=== PATIENT | female | born 1970 | race Caucasian/White ===

== ENCOUNTER 2016-03-14 08:25 | Emergency (ER) | payer OTHER ==
[~2016-03-14] VITALS: Ht 154.9 cm; Wt 117.5 kg
[~2016-03-14 08:25] MED LIST: ALBUTEROL0.09 MG/A2 INH; AMOXICILLIN500 MG PO; ANAPROX DS550 MG PO; ANTIVERT25 MG PO; ASPI-COR81 M1 PO; ASPIR LOW81 MG PO; ASPIRIN80 MG PO; AUGMENTIN 875875 MG PO; B COMPLEX1 EACH PO; BACTRIM DS 8001 TA1 PO; BYDUREON2 M1 SQ; CARAFATE1 G1 PO; CARAFATE1 GM PO; CELEXA20 MG PO; CEPHALEXIN500 M1 PO; CLARITIN10 MG PO; COLCHICINE0.6 MG PO; COLESTIPOL HYDRO1 GM PO; COMBIVENT1 ARO IH; CYMBALTA60 MG PO; DAYPRO600 M1 PO; DECADRON4 MG PO; DELTASONE2.5 MG PO; DICLOFENAC SOD50 MG PO; DICLOFENAC SOD75 MG PO; DOXYCYCLINE HY100 M3 PO; ELIMITE 5%60 GM PO; FENOFIBRATE145 M1 PO; FERROUS SULFAT324 M1 PO; FERROUS SULFAT325 M1 PO; FISH OIL SUPER1 SGL PO; FISH OIL500 M1 PO; FLEXERIL10 MG PO; FLEXERIL5 MG PO; GABAPENTIN100 M1 PO; GLUCOPHAGE500 MG PO; HYDROCODONE BIT1 T11 PO; IMODIUM2 MG PO; INDOCIN25 MG PO; IRON TABLETS325 MG PO; LANTUS100 U/ML SC; LASIX40 MG PO; LODINE400 MG PO; MACROBID100 M1 PO; MEDROL DOSEPAK4 MG PO; MELATONIN5 M1 SL; MOBIC15 MG PO; MODAFINIL200 M1 PO; NAPROSYN500 MG PO; NEURONTIN300 MG PO; NEXIUM40 MG PO; NORCO 325 MG-51 TAB PO; NORTRIPTYLINE10 MG PO; Orphenadrine C100 MG PO; PEPCID20 MG PO; PREDNICOT20 MG PO; PREDNISONE10 MG PO; PREDNISONE20 MG PO; PREDNISONE50 MG PO; PRILOSEC40 MG PO; PROAIR HFA8.5 GM IH; PROVENTIL0.09 MG/AC IH; Phenergan25 MG PO; REQUIP0.5 MG PO; ROBAXIN750 MG PO; ROBITUSSIN AC 110 ML PO; SAPHRIS10 M1 SL; SAPHRIS5 M1 SL; SUNMARK OMEPRAZ20 M1 PO; SYMBICORT1 AE1 INH; TOPAMAX50 MG PO; TRAD5TAB1 PO; TRAMADOL HCL50 MG PO; TRAZADONE HYDR100 MG PO; TRICOR145 MG PO; TRICOR48 MG PO; TYLENOL W/CODEI1 TA7 PO; ULTRAM50 MG PO; VICODIN 5/500 505 MG PO; VICODIN 500 MG-1 TAB PO; VICODIN ES 7501 TAB PO; VISTARIL25 MG PO; VISTARIL50 MG PO; VITAMIN B121000 MC1 PO; VITAMIN D2400 IU PO; VITAMIN D2400 UNIT PO; VITAMIN E PO; VOLTAREN1% TP; ZITHROMAX Z PA250 MG PO; ZITHROMAX250 MG PO; ZOFRAN ODT4 MG SL; ZOFRAN4 MG PO; ZOLOFT100 MG PO; ZOMIG5 MG PO; ZYRTEC10 M1 PO; Zofran4 MG PO
[2016-03-14 08:33] VITALS: BP 134/80
[2016-03-14] MEDS ORDERED: PREDNISONE10 MG PO (08:34)
[2016-03-14] MEDS ORDERED: DOXYCYCLINE100 M3 PO (08:34)
[2016-03-14 09:14] LABS: BASO % 0.3 % (0.0-1.0); EOS # 0.1 10*3/uL (0.0-0.4); EOS % 0.5 % (1.0-4.0); HEMATOCRIT 41.4 % (37.0-47.0); IG # 0.2 10*3/uL (0.0-0.1); LYMPH # 4.4 10*3/uL (1.3-4.4); LYMPH % 28.9 % (27.0-41.0); MEAN CELL VOLUME 83.5 fl (81.0-99.0); MEAN CORPUSCULAR HGB 26.2 pg (27.0-31.0); MEAN CORPUSCULAR HGB CONC 31.4 g/dl (33.0-37.0); MEAN PLATELET VOLUME 10.5 fl (9.6-12.3); MONO # 0.6 10*3/uL (0.1-1.0); MONO % 4.1 % (3.0-9.0); NEUT # 9.9 10*3/uL (2.3-7.9); NEUT % 64.8 % (47.0-73.0); PLATELET COUNT AUTOMATED 348 10*3/uL (130-400); RED BLOOD COUNT 4.96 10*6/uL (4.10-5.10); RED CELL DISTRI WIDTH 14.2 % (0-14.5); WHITE BLOOD COUNT 15.3 10*3/uL (4.8-10.8)
[2016-03-14 09:29] LABS: ALBUMIN 3.3 gm/dl (3.1-4.5); ALKALINE PHOSPHATASE 104 U/L (45-117); BILIRUBIN, TOTAL 0.3 mg/dl (0.2-1.0); BUN 14 mg/dl (7-24); CARBON DIOXIDE 26 mmol/L (21-32); CHLORIDE 106 mmol/L (98-107); EST GLOM FILT AFRICAN AMERICAN > 60 ml/min; GLUCOSE 137 mg/dL (65-99); SGOT/AST 30 IU/L (3-35); SGPT/ALT 79 U/L (12-78); SODIUM 142 mmol/L (136-145); TOTAL PROTEIN 8.7 gm/dL (6.4-8.2)
[2016-03-14] MEDS ORDERED: KEFLEX500 M1 PO (10:42)
== END 2016-03-14 11:10 | disposition home or self-care (01) ==
LOC: ED 08:25
PROVIDERS: Student in an Organized Health Care Education/Training Program
DX: K11.20 Sialoadenitis, unspecified (principal); R13.10 Dysphagia, unspecified; F32.9 Major depressive disorder, single episode, unspecified; K21.9 Gastro-esophageal reflux disease without esophagitis; E78.5 Hyperlipidemia, unspecified; G43.909 Migraine, unspecified, not intractable, without status migrainosus; E11.40 Type 2 diabetes mellitus with diabetic neuropathy, unspecified; E11.65 Type 2 diabetes mellitus with hyperglycemia; G89.29 Other chronic pain; Z91.041 Radiographic dye allergy status; Z88.1 Allergy status to other antibiotic agents; Z91.040 Latex allergy status; Z88.6 Allergy status to analgesic agent; Z79.899 Other long term (current) drug therapy; Z79.82 Long term (current) use of aspirin; Z79.4 Long term (current) use of insulin

== ENCOUNTER 2016-03-15 16:05 | Inpatient (IN) | payer OTHER ==
[~2016-03-15] VITALS: Ht 154.9 cm; Wt 119.4 kg
[~2016-03-15 16:05] MED LIST changes: +DOXYCYCLINE100 M3 PO; +KEFLEX500 M1 PO
[2016-03-15 16:21] VITALS: BP 129/70
[2016-03-15 16:59] LABS: BASO % 0.3 % (0.0-1.0); EOS # 0.3 10*3/uL (0.0-0.4); EOS % 2.1 % (1.0-4.0); HEMATOCRIT 41.1 % (37.0-47.0); HEMOGLOBIN 13.1 g/dl (12.0-16.0); IG # 0.1 10*3/uL (0.0-0.1); LYMPH # 3.5 10*3/uL (1.3-4.4); LYMPH % 28.5 % (27.0-41.0); MEAN CELL VOLUME 82.7 fl (81.0-99.0); MEAN CORPUSCULAR HGB 26.4 pg (27.0-31.0); MEAN CORPUSCULAR HGB CONC 31.9 g/dl (33.0-37.0); MEAN PLATELET VOLUME 10.2 fl (9.6-12.3); MONO # 0.6 10*3/uL (0.1-1.0); MONO % 4.9 % (3.0-9.0); NEUT # 7.7 10*3/uL (2.3-7.9); NEUT % 63.6 % (47.0-73.0); PLATELET COUNT AUTOMATED 307 10*3/uL (130-400); RED BLOOD COUNT 4.97 10*6/uL (4.10-5.10); RED CELL DISTRI WIDTH 14.3 % (0-14.5); WHITE BLOOD COUNT 12.1 10*3/uL (4.8-10.8)
[2016-03-15 17:15] LABS: ALBUMIN 3.1 gm/dl (3.1-4.5); ALKALINE PHOSPHATASE 107 U/L (45-117); BILIRUBIN, TOTAL 0.4 mg/dl (0.2-1.0); BUN 12 mg/dl (7-24); CARBON DIOXIDE 30 mmol/L (21-32); CHLORIDE 102 mmol/L (98-107); EST GLOM FILT AFRICAN AMERICAN > 60 ml/min; GLUCOSE 102 mg/dL (65-99); POTASSIUM 4.3 mmol/L (3.5-5.1); SGOT/AST 46 IU/L (3-35); SGPT/ALT 79 U/L (12-78); SODIUM 140 mmol/L (136-145)
[2016-03-15 18:45] VITALS: BP 107/66
[2016-03-15 19:12] VITALS: BP 124/47
[2016-03-15 19:45] VITALS: BP 124/47
[2016-03-16] VITALS: BP 98/52
[2016-03-16 04:00] VITALS: BP 94/53
[2016-03-16 07:58] VITALS: BP 109/51
[2016-03-16 08:10] LABS: BASO % 0.3 % (0.0-1.0); EOS # 0.3 10*3/uL (0.0-0.4); EOS % 3.4 % (1.0-4.0); IG # 0.1 10*3/uL (0.0-0.1); LYMPH % 34.6 % (27.0-41.0); MEAN CORPUSCULAR HGB 26.3 pg (27.0-31.0); MEAN CORPUSCULAR HGB CONC 31.7 g/dl (33.0-37.0); MEAN PLATELET VOLUME 10.1 fl (9.6-12.3); MONO # 0.5 10*3/uL (0.1-1.0); MONO % 5.3 % (3.0-9.0); NEUT # 4.9 10*3/uL (2.3-7.9); NEUT % 55.7 % (47.0-73.0); PLATELET COUNT AUTOMATED 250 10*3/uL (130-400); RED BLOOD COUNT 4.18 10*6/uL (4.10-5.10); RED CELL DISTRI WIDTH 14.2 % (0-14.5); WHITE BLOOD COUNT 8.7 10*3/uL (4.8-10.8)
[2016-03-16 08:11] LABS: HEMATOCRIT 34.7 % (37.0-47.0)
[2016-03-16 08:20] LABS: PROTHROMBIN TIME 10.4 SECONDS (9.0-12.4)
[2016-03-16 08:28] LABS: ALBUMIN 2.6 gm/dl (3.1-4.5); ALKALINE PHOSPHATASE 87 U/L (45-117); BILIRUBIN, TOTAL 0.3 mg/dl (0.2-1.0); BUN 10 mg/dl (7-24); CARBON DIOXIDE 26 mmol/L (21-32); CHLORIDE 108 mmol/L (98-107); CHOLESTEROL 156 mg/dL (<200); EST GLOM FILT AFRICAN AMERICAN > 60 ml/min; FREE T4 1.27 ng/dl (0.76-1.46); GLUCOSE 111 mg/dL (65-99); HDL CHOLESTEROL 31 mg/dl (40-60); LDL CHOLESTEROL 89 mg/dL (9-159); MAGNESIUM 2.1 mg/dL (1.5-2.1); POTASSIUM 3.9 mmol/L (3.5-5.1); SGOT/AST 43 IU/L (3-35); SGPT/ALT 64 U/L (12-78); SODIUM 144 mmol/L (136-145); TOTAL PROTEIN 6.6 gm/dL (6.4-8.2); TRIGLYCERIDES 180 mg/dl (<150); VLDL CHOLESTEROL 36 mg/dL (6-40)
[2016-03-16 08:45] LABS: FOLIC ACID 4.7 ng/mL (>5.38)
[2016-03-16 09:18] LABS: HEMOGLOBIN A1c 8.4 % (4.8-5.6)
[2016-03-16 16:00] VITALS: BP 156/67
[2016-03-17] VITALS: BP 114/75
[2016-03-17 08:00] VITALS: BP 130/62
[2016-03-17] MEDS ORDERED: METFORMIN1000 MG PO (10:33)
== END 2016-03-17 11:30 | disposition home or self-care (01) | DRG 871 ==
LOC: ED 16:05 → EDHOLD 17:50 → 5E 18:31
PROVIDERS: Internal Medicine Hospice and Palliative Medicine; Nurse Practitioner Family
DX: A41.9 Sepsis, unspecified organism (principal); E43 Unspecified severe protein-calorie malnutrition; E08.42 Diabetes mellitus due to underlying condition with diabetic polyneuropathy; Z68.42 Body mass index [BMI] 45.0-49.9, adult; K11.20 Sialoadenitis, unspecified; G25.81 Restless legs syndrome; D50.9 Iron deficiency anemia, unspecified; G47.419 Narcolepsy without cataplexy; K21.9 Gastro-esophageal reflux disease without esophagitis; K27.9 Peptic ulcer, site unspecified, unspecified as acute or chronic, without hemorrhage or perforation; F31.9 Bipolar disorder, unspecified; J45.909 Unspecified asthma, uncomplicated; G43.909 Migraine, unspecified, not intractable, without status migrainosus; G44.89 Other headache syndrome; R74.0 Nonspecific elevation of levels of transaminase and lactic acid dehydrogenase [LDH]; G89.4 Chronic pain syndrome; E78.5 Hyperlipidemia, unspecified; G43.919 Migraine, unspecified, intractable, without status migrainosus; Z79.899 Other long term (current) drug therapy; Z79.82 Long term (current) use of aspirin; Z79.4 Long term (current) use of insulin; Z82.3 Family history of stroke; Z83.3 Family history of diabetes mellitus; Z80.9 Family history of malignant neoplasm, unspecified; Z82.49 Family history of ischemic heart disease and other diseases of the circulatory system; Z88.8 Allergy status to other drugs, medicaments and biological substances; Z91.041 Radiographic dye allergy status; Z88.1 Allergy status to other antibiotic agents; Z91.040 Latex allergy status

== ENCOUNTER 2016-05-03 16:10 | Inpatient (IN) | payer OTHER ==
[~2016-05-03] VITALS: Ht 155 cm; Wt 120.0 kg
--- NOTE | ~2016-05-03 | CON ---
[place], [place] REPORT OF CONSULTATION [id number] UN[facility] #: [id number] ROOM: 407 DOCTOR: RAYNA CASTRO MD BIRTHDATE: [birth year] DOS: 05/05/2016 HISTORY OF PRESENT ILLNESS: This is a 45-year-old -[place]une[place] woman with a history of morbid obesity, obstructive sleep apnea and uses BiPAP at night. She also has essential hypertension. She has never had a stroke, but has had diabetes for some time and hyperlipidemia. Father was 55 when she had a heart attack. She has never smoked cigarettes, does not use alcoholic beverages and lives with her . She had a diagnostic heart cath done about 15 years ago or so and the coronary artery was said to be normal. She has had left anterior sharp stabbing pain for the last 4-6 months. It comes at any time mostly at rest and the pains are rather sharp and very short-lived and are not accompanied by any breathing difficulty, nausea, sweating, dizziness, loss of consciousness or palpitations. In the last 10 days, the symptoms have gotten worse again occurring at rest. When she is walking around, she does not have these symptoms. She walked in the hallways yesterday and today and had no symptoms. She is a reasonably active lady who lives at home and is generally in a fairly good mood. Relationship with her is fine. There is no orthopnea or swelling of the lower extremities. She has no nausea, vomiting or blood in the stools and no neurological symptoms are reported. PAST MEDICAL HISTORY: Also includes bipolar disorder, chronic fatigue syndrome, migraines, narcolepsy, restless legs syndrome. HOME MEDICATIONS: Are numerous that include ProAir HFA, Saphris, aspirin 81 daily, atorvastatin, Symbicort, cholecalciferol, colestipol, vitamin B12 1000 mcg daily, ____ 10 mg daily, Cymbalta 60 mg daily, fenofibrate 145 mg daily, furosemide 40 daily, gabapentin 600 b.i.d., Lantus, metformin, modafinil 200 daily, nortriptyline 10 mg q.h.s., omega-3, fish oil, omeprazole, ranitidine, ropinirole, Carafate and Topamax. PHYSICAL EXAMINATION: GENERAL: The patient shows moderately obese. She is very pleasant, alert, oriented, very comfortable. There is no anemia or thyromegaly. She is not jaundiced. VITAL SIGNS: Pulse is 76 and regular, blood pressure 118/58. NECK: Normal JVP. AJR is negative. HEART: There is no carotid bruit. There is no cardiomegaly. Auscultation revealed no obvious murmurs ____. All the heart sounds are somewhat distant because of obesity. Good pedal pulses and no edema in the lower extremities. LUNGS: Clear to percussion and auscultation with somewhat diminished breath sounds because of obesity. ABDOMEN: Supple, nontender. Difficult exam; however, but no bruit. LABORATORY DATA: An ECG showed normal sinus rhythm and a normal pattern. Troponin I levels have been normal as has total CK and MB. [place], [place] REPORT OF CONSULTATION NAME: JESSICA GARCIA UNIT #: [id number] ROOM: 407 DOCTOR: RAYNA CASTRO MD BIRTHDATE: [birth year] IMPRESSION: This patient has had sharp stabbing pain that is very localized and has been present for about 6 months with some exacerbation. This is most likely from the chest wall. I do not suspect underlying myocardial ischemia as a cause for the symptoms. She ambulated in the hallways and had no symptoms. From cardiac standpoint, she may be discharged home. If she has any further concerns, she can call my office for further assessment. I thank you for this consult. RAYNA CASTRO MD CM:CONSTR:REPORT OF CONSULTATION 1050 05/05/16 2149 interface
[~2016-05-03 16:10] MED LIST changes: +METFORMIN1000 MG PO
[2016-05-03] MEDS ORDERED: NEURONTIN300 MG PO (16:28)
[2016-05-03] MEDS ORDERED: LASIX40 MG PO (16:30)
[2016-05-03] MEDS ORDERED: RANITIDINE HCL150 M1 PO (16:33)
[2016-05-03] MEDS ORDERED: INVOKANA300 M1 PO (16:34)
[2016-05-03] MEDS ORDERED: FISH OIL CONC1000 M2 PO (16:36)
[2016-05-03] MEDS ORDERED: MILK THISTLE175 M1 PO (16:38)
[2016-05-03] MEDS ORDERED: VITAMIN D3400 UNIT PO (16:40)
[2016-05-03] MEDS ORDERED: ATORVASTATIN CA10 M1 PO (16:42)
[2016-05-03 17:03] LABS: BASO # 0.1 10*3/uL (0.0-0.1); BASO % 0.5 % (0.0-1.0); EOS # 0.4 10*3/uL (0.0-0.4); EOS % 3.4 % (1.0-4.0); HEMATOCRIT 37.2 % (37.0-47.0); HEMOGLOBIN 12.3 g/dl (12.0-16.0); IG # 0.1 10*3/uL (0.0-0.1); LYMPH # 2.9 10*3/uL (1.3-4.4); LYMPH % 24.7 % (27.0-41.0); MEAN CELL VOLUME 81.8 fl (81.0-99.0); MEAN CORPUSCULAR HGB CONC 33.1 g/dl (33.0-37.0); MEAN PLATELET VOLUME 10.6 fl (9.6-12.3); MONO # 0.5 10*3/uL (0.1-1.0); MONO % 4.6 % (3.0-9.0); NEUT # 7.8 10*3/uL (2.3-7.9); PLATELET COUNT AUTOMATED 277 10*3/uL (130-400); RED BLOOD COUNT 4.55 10*6/uL (4.10-5.10); RED CELL DISTRI WIDTH 14.2 % (0-14.5); WHITE BLOOD COUNT 11.8 10*3/uL (4.8-10.8)
[2016-05-03 17:16] LABS: INTERNATIONAL NORM RATIO 0.9 (2.0-3.5); PROTHROMBIN TIME 9.8 SECONDS (9.0-12.4)
[2016-05-03 17:28] LABS: ALBUMIN 3.2 gm/dl (3.1-4.5); ALKALINE PHOSPHATASE 121 U/L (45-117); BILIRUBIN, TOTAL 0.2 mg/dl (0.2-1.0); BUN 12 mg/dl (7-24); C-REACTIVE PROTEIN 5.17 MG/DL (0-0.3); CARBON DIOXIDE 26 mmol/L (21-32); CHLORIDE 103 mmol/L (98-107); CKMB < 0.5 ng/ml (0.5-3.6); CPK 35 U/L (26-192); EST GLOM FILT AFRICAN AMERICAN > 60 ml/min; GLUCOSE 243 mg/dL (65-99); MAGNESIUM 1.9 mg/dL (1.5-2.1); POTASSIUM 4.1 mmol/L (3.5-5.1); SGOT/AST 93 IU/L (3-35); SGPT/ALT 108 U/L (12-78); SODIUM 139 mmol/L (136-145); TOTAL PROTEIN 7.9 gm/dL (6.4-8.2); TROPONIN I < 0.015 ng/ml (<0.045)
[2016-05-03 18:59] LABS: LA>2 REFLEX 2 HR DRAW NOW
[2016-05-04 00:59] LABS: CKMB < 0.5 ng/ml (0.5-3.6); CPK 47 U/L (26-192)
[2016-05-04 01:00] LABS: TROPONIN I < 0.015 ng/ml (<0.045)
[2016-05-04 06:03] LABS: BASO # 0.1 10*3/uL (0.0-0.1); BASO % 0.5 % (0.0-1.0); EOS # 0.5 10*3/uL (0.0-0.4); EOS % 4.9 % (1.0-4.0); HEMATOCRIT 37.9 % (37.0-47.0); IG # 0.1 10*3/uL (0.0-0.1); LYMPH # 2.9 10*3/uL (1.3-4.4); LYMPH % 28.4 % (27.0-41.0); MEAN CELL VOLUME 83.1 fl (81.0-99.0); MEAN CORPUSCULAR HGB 26.3 pg (27.0-31.0); MEAN CORPUSCULAR HGB CONC 31.7 g/dl (33.0-37.0); MEAN PLATELET VOLUME 10.3 fl (9.6-12.3); MONO # 0.5 10*3/uL (0.1-1.0); MONO % 4.8 % (3.0-9.0); NEUT # 6.1 10*3/uL (2.3-7.9); NEUT % 60.2 % (47.0-73.0); PLATELET COUNT AUTOMATED 273 10*3/uL (130-400); RED BLOOD COUNT 4.56 10*6/uL (4.10-5.10); RED CELL DISTRI WIDTH 14.5 % (0-14.5); WHITE BLOOD COUNT 10.1 10*3/uL (4.8-10.8)
[2016-05-04 06:14] LABS: CKMB < 0.5 ng/ml (0.5-3.6); CPK 25 U/L (26-192); TROPONIN I < 0.015 ng/ml (<0.045)
[2016-05-04 06:15] LABS: HEMOGLOBIN A1c 8.3 % (4.8-5.6)
[2016-05-04 06:31] LABS: BUN 12 mg/dl (7-24); CARBON DIOXIDE 26 mmol/L (21-32); CHLORIDE 102 mmol/L (98-107); GLUCOSE 175 mg/dL (65-99); POTASSIUM 4.1 mmol/L (3.5-5.1); PROTHROMBIN TIME 10.2 SECONDS (9.0-12.4); SODIUM 140 mmol/L (136-145)
[2016-05-04 06:44] LABS: CHOLESTEROL 213 mg/dL (<200); EST GLOM FILT AFRICAN AMERICAN > 60 ml/min; FREE T4 1.03 ng/dl (0.76-1.46); HDL CHOLESTEROL 38 mg/dl (40-60); LDL CHOLESTEROL 132 mg/dL (9-159); TRIGLYCERIDES 217 mg/dl (<150); VLDL CHOLESTEROL 43 mg/dL (6-40)
[2016-05-04 06:50] LABS: FOLIC ACID 7.16 ng/mL (>5.38); VITAMIN D, 25-HYDROXY 21.3 ng/mL (30-100)
[2016-05-04 12:35] LABS: CKMB < 0.5 ng/ml (0.5-3.6); CPK 30 U/L (26-192); TROPONIN I < 0.015 ng/ml (<0.045)
[2016-05-05 06:16] LABS: BASO # 0.1 10*3/uL (0.0-0.1); BASO % 0.7 % (0.0-1.0); EOS # 0.5 10*3/uL (0.0-0.4); EOS % 5.1 % (1.0-4.0); HEMATOCRIT 35.5 % (37.0-47.0); HEMOGLOBIN 11.3 g/dl (12.0-16.0); IG # 0.1 10*3/uL (0.0-0.1); LYMPH % 28.5 % (27.0-41.0); MEAN CELL VOLUME 82.9 fl (81.0-99.0); MEAN CORPUSCULAR HGB 26.4 pg (27.0-31.0); MEAN CORPUSCULAR HGB CONC 31.8 g/dl (33.0-37.0); MEAN PLATELET VOLUME 10.9 fl (9.6-12.3); MONO # 0.6 10*3/uL (0.1-1.0); MONO % 5.4 % (3.0-9.0); NEUT # 6.3 10*3/uL (2.3-7.9); NEUT % 59.3 % (47.0-73.0); PLATELET COUNT AUTOMATED 240 10*3/uL (130-400); RED BLOOD COUNT 4.28 10*6/uL (4.10-5.10); RED CELL DISTRI WIDTH 14.5 % (0-14.5); WHITE BLOOD COUNT 10.6 10*3/uL (4.8-10.8)
[2016-05-05 06:38] LABS: ALKALINE PHOSPHATASE 97 U/L (45-117); BILIRUBIN, TOTAL 0.3 mg/dl (0.2-1.0); BUN 11 mg/dl (7-24); CARBON DIOXIDE 26 mmol/L (21-32); CHLORIDE 102 mmol/L (98-107); EST GLOM FILT AFRICAN AMERICAN > 60 ml/min; GLUCOSE 166 mg/dL (65-99); POTASSIUM 4.3 mmol/L (3.5-5.1); SGOT/AST 87 IU/L (3-35); SGPT/ALT 101 U/L (12-78); SODIUM 140 mmol/L (136-145); TOTAL PROTEIN 7.2 gm/dL (6.4-8.2)
== END 2016-05-05 14:30 | disposition home or self-care (01) | DRG 313 ==
LOC: ED 16:10 → EDHOLD 18:13 → 4E 18:53
PROVIDERS: Emergency Medicine; Family Medicine; Internal Medicine
DX: R07.89 Other chest pain (principal); R65.10 Systemic inflammatory response syndrome (SIRS) of non-infectious origin without acute organ dysfunction; E11.40 Type 2 diabetes mellitus with diabetic neuropathy, unspecified; E11.65 Type 2 diabetes mellitus with hyperglycemia; Z68.42 Body mass index [BMI] 45.0-49.9, adult; E66.01 Morbid (severe) obesity due to excess calories; D72.825 Bandemia; R79.82 Elevated C-reactive protein (CRP); R79.89 Other specified abnormal findings of blood chemistry; J45.909 Unspecified asthma, uncomplicated; F31.9 Bipolar disorder, unspecified; K21.9 Gastro-esophageal reflux disease without esophagitis; G25.81 Restless legs syndrome; D50.9 Iron deficiency anemia, unspecified; E78.5 Hyperlipidemia, unspecified; Z90.710 Acquired absence of both cervix and uterus; Z90.49 Acquired absence of other specified parts of digestive tract; Z82.49 Family history of ischemic heart disease and other diseases of the circulatory system; Z83.3 Family history of diabetes mellitus; Z88.1 Allergy status to other antibiotic agents; Z88.6 Allergy status to analgesic agent; Z91.041 Radiographic dye allergy status; Z91.040 Latex allergy status; Z88.8 Allergy status to other drugs, medicaments and biological substances; Z79.51 Long term (current) use of inhaled steroids; Z79.82 Long term (current) use of aspirin; Z79.4 Long term (current) use of insulin; Z79.84 Long term (current) use of oral hypoglycemic drugs; Z79.899 Other long term (current) drug therapy

== ENCOUNTER 2016-06-08 18:18 | Emergency (ER) | payer OTHER ==
[~2016-06-08] VITALS: Wt 122.0 kg
[~2016-06-08 18:18] MED LIST changes: +ATORVASTATIN CA10 M1 PO; +FISH OIL CONC1000 M2 PO; +INVOKANA300 M1 PO; +MILK THISTLE175 M1 PO; +RANITIDINE HCL150 M1 PO; +VITAMIN D3400 UNIT PO
[2016-06-08] MEDS ORDERED: Lopressor25 MG PO (18:36)
[2016-06-08 19:42] VITALS: BP 134/87
[2016-06-08 19:48] LABS: BASO # 0.1 10*3/uL (0.0-0.1); BASO % 0.4 % (0.0-1.0); EOS # 0.4 10*3/uL (0.0-0.4); EOS % 3.8 % (1.0-4.0); HEMATOCRIT 38.6 % (37.0-47.0); HEMOGLOBIN 12.5 g/dl (12.0-16.0); IG # 0.1 10*3/uL (0.0-0.1); LYMPH # 3.2 10*3/uL (1.3-4.4); LYMPH % 28.6 % (27.0-41.0); MEAN CELL VOLUME 82.7 fl (81.0-99.0); MEAN CORPUSCULAR HGB 26.8 pg (27.0-31.0); MEAN CORPUSCULAR HGB CONC 32.4 g/dl (33.0-37.0); MEAN PLATELET VOLUME 10.6 fl (9.6-12.3); MONO # 0.6 10*3/uL (0.1-1.0); MONO % 5.1 % (3.0-9.0); NEUT # 6.9 10*3/uL (2.3-7.9); NEUT % 61.5 % (47.0-73.0); PLATELET COUNT AUTOMATED 279 10*3/uL (130-400); RED BLOOD COUNT 4.67 10*6/uL (4.10-5.10); RED CELL DISTRI WIDTH 14.3 % (0-14.5); WHITE BLOOD COUNT 11.2 10*3/uL (4.8-10.8)
[2016-06-08 19:59] LABS: PROTHROMBIN TIME 10.1 SECONDS (9.0-12.4)
[2016-06-08 20:04] LABS: ALBUMIN 3.2 gm/dl (3.1-4.5); ALKALINE PHOSPHATASE 106 U/L (45-117); BILIRUBIN, TOTAL 0.3 mg/dl (0.2-1.0); BUN 13 mg/dl (7-24); CARBON DIOXIDE 27 mmol/L (21-32); CHLORIDE 103 mmol/L (98-107); EST GLOM FILT AFRICAN AMERICAN > 60 ml/min; GLUCOSE 205 mg/dL (65-99); POTASSIUM 4.5 mmol/L (3.5-5.1); SGOT/AST 64 IU/L (3-35); SGPT/ALT 86 U/L (12-78); SODIUM 141 mmol/L (136-145)
[2016-06-08 20:08] LABS: TROPONIN I < 0.015 ng/ml (<0.045)
== END 2016-06-08 20:36 | disposition home or self-care (01) ==
LOC: ED 18:18
PROVIDERS: Physician Assistant
DX: S80.02XA Contusion of left knee, initial encounter (principal); R55 Syncope and collapse; Z79.4 Long term (current) use of insulin; Z79.82 Long term (current) use of aspirin; Z90.49 Acquired absence of other specified parts of digestive tract; Z79.899 Other long term (current) drug therapy; Z88.1 Allergy status to other antibiotic agents; Z88.6 Allergy status to analgesic agent; Z91.041 Radiographic dye allergy status; X58.XXXA Exposure to other specified factors, initial encounter; Y93.89 Activity, other specified; Y92.9 Unspecified place or not applicable; Y99.9 Unspecified external cause status

== ENCOUNTER → 2016-06-14 | Outpatient (CLI) | payer OTHER ==
[~2016-06-14] MED LIST changes: +Lopressor25 MG PO
== END | disposition home or self-care (01) ==
LOC: MAMMO 06-06 11:30
DX: Z12.31 Encounter for screening mammogram for malignant neoplasm of breast (principal)

== ENCOUNTER → 2016-06-25 | Outpatient (CLI) | payer OTHER | END | disposition home or self-care (01) | LOC: ORTHO 03:54 | DX: M17.12 Unilateral primary osteoarthritis, left knee (principal); M25.472 Effusion, left ankle; M25.572 Pain in left ankle and joints of left foot; Z91.81 History of falling ==

== ENCOUNTER 2016-09-17 23:39 | Inpatient (IN) | payer OTHER ==
[~2016-09-17] VITALS: Ht 152.4 cm; Wt 119.7 kg
[2016-09-17 23:51] LABS: BASO # 0.1 10*3/uL (0.0-0.1); BASO % 0.5 % (0.0-1.0); EOS # 0.5 10*3/uL (0.0-0.4); EOS % 3.6 % (1.0-4.0); HEMATOCRIT 42.9 % (37.0-47.0); HEMOGLOBIN 13.5 g/dl (12.0-16.0); IG # 0.1 10*3/uL (0.0-0.1); LYMPH # 4.5 10*3/uL (1.3-4.4); LYMPH % 30.7 % (27.0-41.0); MEAN CELL VOLUME 83.1 fl (81.0-99.0); MEAN CORPUSCULAR HGB 26.2 pg (27.0-31.0); MEAN CORPUSCULAR HGB CONC 31.5 g/dl (33.0-37.0); MEAN PLATELET VOLUME 10.5 fl (9.6-12.3); MONO # 0.8 10*3/uL (0.1-1.0); MONO % 5.2 % (3.0-9.0); NEUT # 8.7 10*3/uL (2.3-7.9); NEUT % 59.3 % (47.0-73.0); PLATELET COUNT AUTOMATED 359 10*3/uL (130-400); RED BLOOD COUNT 5.16 10*6/uL (4.10-5.10); WHITE BLOOD COUNT 14.6 10*3/uL (4.8-10.8)
[2016-09-18] VITALS: BP 127/87
[2016-09-18 00:02] LABS: PROTHROMBIN TIME 10.4 SECONDS (9.0-12.4)
[2016-09-18 00:09] LABS: ALBUMIN 3.3 gm/dl (3.1-4.5); ALKALINE PHOSPHATASE 119 U/L (45-117); BILIRUBIN, TOTAL 0.3 mg/dl (0.2-1.0); BUN 11 mg/dl (7-24); CARBON DIOXIDE 28 mmol/L (21-32); CHLORIDE 99 mmol/L (98-107); EST GLOM FILT AFRICAN AMERICAN > 60 ml/min; GLUCOSE 277 mg/dL (65-99); MAGNESIUM 1.8 mg/dL (1.5-2.1); POTASSIUM 4.1 mmol/L (3.5-5.1); SGOT/AST 49 IU/L (3-35); SGPT/ALT 72 U/L (12-78); SODIUM 133 mmol/L (136-145); TOTAL PROTEIN 8.5 gm/dL (6.4-8.2); TROPONIN I < 0.015 ng/ml (<0.045)
[2016-09-18 00:28] VITALS: BP 132/80; BP 142/80
[2016-09-18 01:05] VITALS: BP 128/76
[2016-09-18 01:57] VITALS: BP 132/66
[2016-09-18 06:20] LABS: BASO # 0.1 10*3/uL (0.0-0.1); BASO % 0.5 % (0.0-1.0); EOS # 0.5 10*3/uL (0.0-0.4); EOS % 4.6 % (1.0-4.0); HEMATOCRIT 37.3 % (37.0-47.0); HEMOGLOBIN 11.9 g/dl (12.0-16.0); IG # 0.1 10*3/uL (0.0-0.1); LYMPH # 3.4 10*3/uL (1.3-4.4); MEAN CELL VOLUME 83.3 fl (81.0-99.0); MEAN CORPUSCULAR HGB 26.6 pg (27.0-31.0); MEAN CORPUSCULAR HGB CONC 31.9 g/dl (33.0-37.0); MEAN PLATELET VOLUME 10.7 fl (9.6-12.3); MONO # 0.5 10*3/uL (0.1-1.0); MONO % 4.8 % (3.0-9.0); NEUT # 6.5 10*3/uL (2.3-7.9); NEUT % 58.5 % (47.0-73.0); PLATELET COUNT AUTOMATED 286 10*3/uL (130-400); RED BLOOD COUNT 4.48 10*6/uL (4.10-5.10); RED CELL DISTRI WIDTH 14.1 % (0-14.5); WHITE BLOOD COUNT 11.1 10*3/uL (4.8-10.8)
[2016-09-18 06:22] LABS: BUN 10 mg/dl (7-24); CARBON DIOXIDE 27 mmol/L (21-32); CHLORIDE 102 mmol/L (98-107); CHOLESTEROL 193 mg/dL (<200); EST GLOM FILT AFRICAN AMERICAN > 60 ml/min; FREE T4 1.13 ng/dl (0.76-1.46); GLUCOSE 229 mg/dL (65-99); HDL CHOLESTEROL 33 mg/dl (40-60); LDL CHOLESTEROL 118 mg/dL (9-159); POTASSIUM 3.8 mmol/L (3.5-5.1); SODIUM 135 mmol/L (136-145); TRIGLYCERIDES 209 mg/dl (<150); VLDL CHOLESTEROL 42 mg/dL (6-40)
[2016-09-18 06:31] LABS: PROTHROMBIN TIME 10.4 SECONDS (9.0-12.4)
[2016-09-18 07:44] LABS: HEMOGLOBIN A1c 8.7 % (4.8-5.6)
[2016-09-18 08:00] VITALS: BP 128/56
[2016-09-18 09:16] LABS: VITAMIN D, 25-HYDROXY 20.6 ng/mL (30-100)
[2016-09-18 09:17] LABS: FOLIC ACID 3.92 ng/mL (>5.38)
[2016-09-18] MEDS ORDERED: VITAMIN D3400 UNIT PO (11:04)
== END 2016-09-18 13:50 | disposition home or self-care (01) | DRG 313 ==
LOC: ED 23:39 → 5E 09-18 00:48 → EDHOLD 09-18 00:48 → 5E 09-18 01:07
PROVIDERS: Emergency Medicine Emergency Medical Services; Internal Medicine
DX: R07.89 Other chest pain (principal); N17.0 Acute kidney failure with tubular necrosis; R65.10 Systemic inflammatory response syndrome (SIRS) of non-infectious origin without acute organ dysfunction; E11.40 Type 2 diabetes mellitus with diabetic neuropathy, unspecified; E11.65 Type 2 diabetes mellitus with hyperglycemia; E44.1 Mild protein-calorie malnutrition; E87.1 Hypo-osmolality and hyponatremia; E66.2 Morbid (severe) obesity with alveolar hypoventilation; Z68.43 Body mass index [BMI] 50.0-59.9, adult; G89.29 Other chronic pain; J45.909 Unspecified asthma, uncomplicated; F32.9 Major depressive disorder, single episode, unspecified; K21.9 Gastro-esophageal reflux disease without esophagitis; E78.5 Hyperlipidemia, unspecified; G47.419 Narcolepsy without cataplexy; Z87.11 Personal history of peptic ulcer disease; Z90.710 Acquired absence of both cervix and uterus; Z90.49 Acquired absence of other specified parts of digestive tract; Z82.3 Family history of stroke; Z80.9 Family history of malignant neoplasm, unspecified; Z83.3 Family history of diabetes mellitus; Z82.49 Family history of ischemic heart disease and other diseases of the circulatory system; Z91.041 Radiographic dye allergy status; Z88.6 Allergy status to analgesic agent; Z88.1 Allergy status to other antibiotic agents; Z91.040 Latex allergy status; Z88.8 Allergy status to other drugs, medicaments and biological substances; Z79.82 Long term (current) use of aspirin; Z79.84 Long term (current) use of oral hypoglycemic drugs; Z79.899 Other long term (current) drug therapy; Z79.4 Long term (current) use of insulin

== ENCOUNTER → 2016-10-15 | Outpatient (CLI) | payer OTHER | END | disposition home or self-care (01) | LOC: RAD 11:17 | DX: J44.9 Chronic obstructive pulmonary disease, unspecified (principal); I11.0 Hypertensive heart disease with heart failure; I50.9 Heart failure, unspecified; E11.9 Type 2 diabetes mellitus without complications ==

== ENCOUNTER 2016-10-23 09:06 | Inpatient (IN) | payer OTHER ==
[~2016-10-23] VITALS: Ht 154.9 cm; Wt 120.0 kg
--- NOTE | ~2016-10-23 | CON ---
[place], [place] REPORT OF CONSULTATION NAME[facility] [id number] UNIT #: [id number] ROOM: 532 DOCTOR: RAYNA CASTRO MD BIRTHDATE: [birth year] DOS: 10/24/2016 HISTORY OF PRESENT ILLNESS: This is a 46-year-old -Mexican woman with a history of morbid obesity, obstructive sleep apnea and I believe narcolepsy, who uses BiPAP at night. She also has essential hypertension and hyperlipidemia. She had a heart cath done 15 years ago which was normal. Her father was 55 when he had a heart attack. She quit smoking some 10 years ago. She was admitted to the hospital through the Emergency Department because of left anterior chest pain. This feels like a heavy pressure and tightness that has been there for 2 months. She insists on the fact that this has been there persistently and has not gone away completely, although it becomes minimal at times. Walking, climbing stairs, moving her body, cough, deep breath does not seem to affect this pain and nothing seems to relieve it either. She has had it at night as well. She has no palpitations, dizziness or loss of consciousness and no swelling of the lower extremities. PAST MEDICAL HISTORY: Also includes bipolar disorder/depression, diabetes mellitus, GERD, iron deficiency anemia, migraines, peptic ulcer disease. PHYSICAL EXAMINATION: GENERAL: This is a patient who is alert and oriented. She is moderately obese. Her complexion is fine. There is no thyromegaly or finger clubbing. VITAL SIGNS: Pulse is irregular at 80, blood pressure 108/57. NECK: Normal JVP. No bruit in the neck. HEART: There is no cardiomegaly. No murmurs or rubs are present. Good pedal pulses. EXTREMITIES: Trace edema in the pretibial areas. RESPIRATORY: Lungs are clear to percussion and auscultation with somewhat reduced breath sounds, probably because of obesity. DIAGNOSTIC STUDIES: An ECG showed normal sinus rhythm and a normal pattern. An echocardiogram was of poor quality. LV systolic function was normal. RV size was also normal. Troponin I levels were also normal. IMPRESSION: This patient has very atypical chest pain for myocardial ischemia. I think a noncardiac reason such as chest wall pain needs to be considered. I do not feel any further cardiac workup is necessary. From cardiac standpoint, she may be discharged home. [place], [place] REPORT OF CONSULTATION NAME: JESSICA GARCIA UNIT #: [id number] ROOM: 532 DOCTOR: RAYNA CASTRO MD BIRTHDATE: [birth year] RAYNA CASTRO MD CM:CONSTR:REPORT OF CONSULTATION 1852 10/25/16 0752 interface
--- NOTE | ~2016-10-23 | EKG ---
[place], [place] ELECTROCARDIOGRAM REPORT NAME: JESSICA GARCIA UNIT #: [id number] ROOM: 532 DOCTOR: RAYNA CASTRO MD BIRTHDATE: [birth year] DOS: 10/23/2016 TIME: 0913 hours. Normal sinus rhythm at 85 beats per minute. Low voltage in precordial leads. The tracing is otherwise normal. No previous tracing is available for comparison. RAYNA CASTRO MD CM:EKGRPT:ELECTROCARDIOGRAM REPORT 1825 00 RAYNA CASTRO MD
--- NOTE | ~2016-10-23 | EKG ---
[place], [place] ELECTROCARDIOGRAM REPORT NAME: JESSICA GARCIA UNIT #: [id number] ROOM: 532 DOCTOR: RAYNA CASTRO MD BIRTHDATE: [birth year] DOS: 10/24/2016 Normal sinus rhythm at 85 beats per minute. Low voltage in precordial leads. The tracing is otherwise normal. RAYNA CASTRO MD CM:EKGRPT:ELECTROCARDIOGRAM REPORT 1826 2245 RAYNA CASTRO MD
--- NOTE | ~2016-10-23 | CON ---
[place], [place] REPORT OF CONSULTATION [id number] UNIT #: [id number] ROOM: 532 DOCTOR: RAYNA CASTRO MD BIRTHDATE: [birth year] DOS: 10/24/2016 HISTORY OF PRESENT ILLNESS: This is a 46-year-old -[place]ongolian woman with a history of extreme obesity, obstructive sleep apnea and narcolepsy, she uses BiPAP at night, essential hypertension and hyperlipidemia. She has never had a heart attack. A stress test a few years ago was unremarkable and was done for similar symptoms. Her father was 55 when he had a heart attack. She quit smoking some 10 years ago. Does not use alcoholic beverages. She lives with her . She was admitted to the hospital yesterday because of couple of months of left anterior chest pressure, heavy feeling that has been pretty much persisted. She tells me that it has never gone away completely. Nothing seems to make it worse, such as walking, moving, taking a deep breath or cough. There is no PND or orthopnea. She has no palpitations. There is no swelling of the lower extremities. HOME MEDICATIONS: Include atorvastatin, aspirin, colestipol, cyanocobalamin 1000 mcg daily, fenofibrate 145 mg daily, ferrous sulfate 325 mg daily, folic acid 0.4 mg daily, glimepiride 2 mg daily, omega 3 1000 mg daily, omeprazole 20 mg daily, ranitidine 150 b.i.d., lovastatin daily. RAYNA CASTRO MD CM:CONSTR:REPORT OF CONSULTATION 1843 10/29/16 0653 interface
[~2016-10-23 09:06] MED LIST changes: +LANTUS SOL100 UNIT/1 SC; -LANTUS100 U/ML SC
[2016-10-23 09:13] VITALS: BP 152/60
[2016-10-23 09:24] LABS: BASO # 0.1 10*3/uL (0.0-0.1); BASO % 0.5 % (0.0-1.0); EOS # 0.4 10*3/uL (0.0-0.4); EOS % 3.7 % (1.0-4.0); HEMATOCRIT 39.3 % (37.0-47.0); HEMOGLOBIN 12.7 g/dl (12.0-16.0); LYMPH # 2.6 10*3/uL (1.3-4.4); LYMPH % 24.1 % (27.0-41.0); MEAN CELL VOLUME 82.9 fl (81.0-99.0); MEAN CORPUSCULAR HGB 26.8 pg (27.0-31.0); MEAN CORPUSCULAR HGB CONC 32.3 g/dl (33.0-37.0); MEAN PLATELET VOLUME 10.5 fl (9.6-12.3); MONO # 0.5 10*3/uL (0.1-1.0); MONO % 4.2 % (3.0-9.0); NEUT # 7.3 10*3/uL (2.3-7.9); NEUT % 66.9 % (47.0-73.0); PLATELET COUNT AUTOMATED 301 10*3/uL (130-400); RED BLOOD COUNT 4.74 10*6/uL (4.10-5.10)
[2016-10-23 09:40] LABS: ACT PARTIAL THROMBO TIME 24.3 SECONDS (20.8-31.5); ALBUMIN 3.2 gm/dl (3.1-4.5); ALKALINE PHOSPHATASE 116 U/L (45-117); BUN 8 mg/dl (7-24); CHLORIDE 101 mmol/L (98-107); CREATININE 0.77 mg/dL (0.55-1.02); MAGNESIUM 1.8 mg/dL (1.5-2.1); POTASSIUM 4.1 mmol/L (3.5-5.1); SGOT/AST 75 IU/L (3-35); SGPT/ALT 79 U/L (12-78); SODIUM 135 mmol/L (136-145); TOTAL PROTEIN 7.9 gm/dL (6.4-8.2)
[2016-10-23 09:41] LABS: TROPONIN I < 0.015 ng/ml (<0.045)
[2016-10-23 10:10] VITALS: BP 133/56
--- NOTE | 2016-10-23 11:14 | NUR ---
A 46, admitted to , under the services of LAURA Dorsey DO with a diagnosis of CHEST PAIN. Chief complaint is CHEST PAIN. Patient arrived via bed from ER. Monitor applied. Initial assessment completed. Vital signs taken and recorded. LAURA DORSEY DO notified of admission to the unit. Orders received. See assessment for past medical history, medications and allergies. Patient and/or family oriented to unit. [facility] visitation policy reviewed. Clothing/patient valuable form completed. VANI LEÓN
[2016-10-23] MEDS ORDERED: ZANTAC 150150 MG PO (11:40)
[2016-10-23] MEDS ORDERED: AMARYL2 MG PO (11:41)
[2016-10-23] MEDS ORDERED: BREO ELLIPTA 11 EACH INH (11:42)
[2016-10-23] MEDS ORDERED: ROSUVASTATIN CA40 MG PO (11:42)
[2016-10-23] MEDS ORDERED: NOVOLOG FL100 UNIT/1 SQ (11:43)
--- NOTE | 2016-10-23 11:46 | NUR ---
MEDICATIONS VERIFIED WITH [facility]
[2016-10-23 12:00] VITALS: BP 100/52
[2016-10-23 16:00] VITALS: BP 142/86
--- NOTE | 2016-10-23 17:40 | NUR ---
NOTIFIED OF CONSULT
--- NOTE | 2016-10-23 19:18 | NUR ---
HEART MONITOR DISCONTINUED PER ORDER.
[2016-10-23 20:00] VITALS: BP 138/81
--- NOTE | 2016-10-23 22:30 | NUR ---
TYLENOL GIVEN PER ORDER FOR CHEST DISCOMFORT MID STERNAL RATED "6" PT. SITTING UP TALKING COLORING IN COLORING BOOK.
[2016-10-24] VITALS: BP 130/60
--- NOTE | 2016-10-24 02:15 | NUR ---
AWALEND BRIEFLY FOR PO MEDICATION.
[2016-10-24 06:15] LABS: BASO # 0.1 10*3/uL (0.0-0.1); BASO % 0.5 % (0.0-1.0); HEMATOCRIT 40.9 % (37.0-47.0); LYMPH # 1.3 10*3/uL (1.3-4.4); LYMPH % 11.6 % (27.0-41.0); MEAN CELL VOLUME 82.8 fl (81.0-99.0); MEAN CORPUSCULAR HGB 26.3 pg (27.0-31.0); MEAN CORPUSCULAR HGB CONC 31.8 g/dl (33.0-37.0); MONO # 0.1 10*3/uL (0.1-1.0); MONO % 1.2 % (3.0-9.0); NEUT # 9.2 10*3/uL (2.3-7.9); NEUT % 85.2 % (47.0-73.0); PLATELET COUNT AUTOMATED 316 10*3/uL (130-400); RED BLOOD COUNT 4.94 10*6/uL (4.10-5.10); RED CELL DISTRI WIDTH 13.9 % (0-14.5); WHITE BLOOD COUNT 10.8 10*3/uL (4.8-10.8)
[2016-10-24 06:42] LABS: ALBUMIN 3.3 gm/dl (3.1-4.5); ALKALINE PHOSPHATASE 121 U/L (45-117); BUN 10 mg/dl (7-24); CHLORIDE 103 mmol/L (98-107); CHOLESTEROL 239 mg/dL (<200); CREATININE 0.75 mg/dL (0.55-1.02); FREE T4 1.21 ng/dl (0.76-1.46); HDL CHOLESTEROL 45 mg/dl (40-60); LDL CHOLESTEROL 172 mg/dL (9-159); MAGNESIUM 1.9 mg/dL (1.5-2.1); PHOSPHOROUS 2.7 mg/dL (2.5-4.9); POTASSIUM 4.6 mmol/L (3.5-5.1); SGOT/AST 54 IU/L (3-35); SGPT/ALT 81 U/L (12-78); SODIUM 136 mmol/L (136-145); TOTAL PROTEIN 8.5 gm/dL (6.4-8.2); TRIGLYCERIDES 111 mg/dl (<150); VLDL CHOLESTEROL 22 mg/dL (6-40)
[2016-10-24 06:46] LABS: THYROID STIM HORMONE (HS) 0.445 uIU/ml (0.358-4.75)
--- NOTE | 2016-10-24 06:50 | NUR ---
IV started left antecubital with #20 angiocath after 1st attempts. The IV site was prepped with Chloraprep. Heparin lock attached. Sterile dressing applied. Patient tolerated precedure well. Procedure performed according to [facility] policy & procedure. ETIENNE STOVER
[2016-10-24 08:00] VITALS: BP 104/52
--- NOTE | 2016-10-24 08:48 | NUR ---
PATIENT TAKEN OFF FLOOR VIA W/C FOR SCHEDULED CTA AND US.
--- NOTE | 2016-10-24 09:00 | NUR ---
case management attempted to visit with patient, patient out of room for procedure
[2016-10-24 10:00] LABS: FERRITIN 239.3 ng/mL (10.0-291.0); VITAMIN D, 25-HYDROXY 28.6 ng/mL (30-100)
--- NOTE | 2016-10-24 11:21 | NUR ---
[employer] in to talk to patient. Patient states lives at home with . There are no steps in the home. Physician: flakita patiño [facility]acy: [facility] Home health services: none Patient's level of ADLs: INDEPENDENT Patient has working utilities: no electric DME: cane Follow-up physician's appointment after d/c: will be made by hospitalist nurse director upon discharge Does patient want to access PORTAL?: no Discharge plan discussed with patient, patient lives at home with her , she states she is independent in adls and ambulation, patient states she is still working on getting electric, she states her brother in law had the electric in his name and ran up the bill and didn't pay for it, she has since removed him from their lease, her doctor has set her up with a case monitor and they are assisting her in getting electric, she states she has water and coolers to keep things cold and a propane grill to cook on, patient states she has an appointment next week with the [employer] and her case monitor will be there with her, case management will follow. DOROTHEA ARRIAGA
[2016-10-24 12:00] VITALS: BP 134/68
--- NOTE | 2016-10-24 12:23 | NUR ---
insurance demos submitted on line, emailed corporate fax number to fax clinicals, reference number is [id number]
[2016-10-24 16:00] VITALS: BP 108/57
[2016-10-24] MEDS ORDERED: PHARMASSURE FO0.4 MG PO (17:04)
[2016-10-24] MEDS ORDERED: ATORVASTATIN CA10 M1 PO (17:04)
[2016-10-24] MEDS ORDERED: FEROSUL325 MG PO (17:04)
[2016-10-24] MEDS ORDERED: LANTUS SOL100 UNIT/1 SC (17:06)
--- NOTE | 2016-10-24 17:30 | NUR ---
CALLED AT THIS TIME REGARDING DISCHARGE. WILL BE IN TO SEE THE PATIENT SHORTLY.
--- NOTE | 2016-10-24 18:49 | NUR ---
HERE TO VISIT PATIENT AND OKAY FOR DISCHARGE.
--- NOTE | 2016-10-24 19:05 | NUR ---
MS Discharge instructions reviewed with patient/family. Patient receptive and verbalizes understanding. Follow-up care arranged. Written instructions given to patient/family. WALTER DOLAN.
[2016-10-25 07:06] LABS: HEPATITIS B SURFACE AG Negative (Negative); HEPATITIS C VIRUS ANTIBODY 0.1 s/co (0.0-0.9)
== END 2016-10-24 19:10 | disposition home or self-care (01) | DRG 206 ==
LOC: ED 09:06 → EDHOLD 10:28 → 5E 10:28
PROVIDERS: Emergency Medicine; Internal Medicine; ADMIT Internal Medicine
DX: M94.0 Chondrocostal junction syndrome [Tietze] (principal); E08.40 Diabetes mellitus due to underlying condition with diabetic neuropathy, unspecified; E66.2 Morbid (severe) obesity with alveolar hypoventilation; Z68.43 Body mass index [BMI] 50.0-59.9, adult; E87.1 Hypo-osmolality and hyponatremia; E44.1 Mild protein-calorie malnutrition; D50.9 Iron deficiency anemia, unspecified; G43.909 Migraine, unspecified, not intractable, without status migrainosus; F31.9 Bipolar disorder, unspecified; J44.9 Chronic obstructive pulmonary disease, unspecified; G89.29 Other chronic pain; E08.42 Diabetes mellitus due to underlying condition with diabetic polyneuropathy; E78.5 Hyperlipidemia, unspecified; K21.9 Gastro-esophageal reflux disease without esophagitis; G25.81 Restless legs syndrome; R74.0 Nonspecific elevation of levels of transaminase and lactic acid dehydrogenase [LDH]; E78.00 Pure hypercholesterolemia, unspecified; Z82.49 Family history of ischemic heart disease and other diseases of the circulatory system; Z88.8 Allergy status to other drugs, medicaments and biological substances; Z91.041 Radiographic dye allergy status; Z88.1 Allergy status to other antibiotic agents; Z91.040 Latex allergy status; Z90.710 Acquired absence of both cervix and uterus; Z79.4 Long term (current) use of insulin; Z90.49 Acquired absence of other specified parts of digestive tract; Z80.9 Family history of malignant neoplasm, unspecified; Z83.3 Family history of diabetes mellitus; Z82.3 Family history of stroke; Z87.891 Personal history of nicotine dependence; Z79.82 Long term (current) use of aspirin; Z79.899 Other long term (current) drug therapy

== ENCOUNTER 2016-11-11 08:01 | Emergency (ER) | payer OTHER ==
[~2016-11-11] VITALS: Ht 154.9 cm; Wt 117.9 kg
[~2016-11-11 08:01] MED LIST changes: +AMARYL2 MG PO; +BREO ELLIPTA 11 EACH INH; +FEROSUL325 MG PO; +NOVOLOG FL100 UNIT/1 SQ; +PHARMASSURE FO0.4 MG PO; +ROSUVASTATIN CA40 MG PO; +ZANTAC 150150 MG PO
[2016-11-11 08:06] VITALS: BP 130/74
[2016-11-11] MEDS ORDERED: ZITHROMAX250 MG PO (09:36)
[2016-11-11] MEDS ORDERED: PREDNISONE50 MG PO (09:36)
== END 2016-11-11 11:00 | disposition home or self-care (01) ==
LOC: ED 08:01
DX: J18.9 Pneumonia, unspecified organism (principal); J44.1 Chronic obstructive pulmonary disease with (acute) exacerbation; G89.29 Other chronic pain; E11.40 Type 2 diabetes mellitus with diabetic neuropathy, unspecified; K21.9 Gastro-esophageal reflux disease without esophagitis; E78.5 Hyperlipidemia, unspecified; G43.909 Migraine, unspecified, not intractable, without status migrainosus; G25.81 Restless legs syndrome; Z90.710 Acquired absence of both cervix and uterus; Z90.49 Acquired absence of other specified parts of digestive tract; Z87.891 Personal history of nicotine dependence; Z98.51 Tubal ligation status; Z79.899 Other long term (current) drug therapy; Z79.82 Long term (current) use of aspirin; Z91.041 Radiographic dye allergy status; Z88.1 Allergy status to other antibiotic agents; Z88.6 Allergy status to analgesic agent; Z91.040 Latex allergy status

== ENCOUNTER → 2016-12-31 | Outpatient (CLI) | payer OTHER ==
[2016-12-31 11:29] LABS: BASO # 0.1 10*3/uL (0.0-0.1); BASO % 0.6 % (0.0-1.0); EOS # 0.5 10*3/uL (0.0-0.4); HEMATOCRIT 39.7 % (37.0-47.0); LYMPH # 2.6 10*3/uL (1.3-4.4); MEAN CELL VOLUME 81.9 fl (81.0-99.0); MEAN CORPUSCULAR HGB 26.8 pg (27.0-31.0); MEAN CORPUSCULAR HGB CONC 32.7 g/dl (33.0-37.0); MEAN PLATELET VOLUME 10.9 fl (9.6-12.3); MONO # 0.5 10*3/uL (0.1-1.0); MONO % 3.9 % (3.0-9.0); NEUT # 7.7 10*3/uL (2.3-7.9); NEUT % 67.6 % (47.0-73.0); PLATELET COUNT AUTOMATED 297 10*3/uL (130-400); RED BLOOD COUNT 4.85 10*6/uL (4.10-5.10); RED CELL DISTRI WIDTH 13.6 % (0-14.5); WHITE BLOOD COUNT 11.5 10*3/uL (4.8-10.8)
[2016-12-31 11:51] LABS: ALBUMIN 3.5 gm/dl (3.1-4.5); ALKALINE PHOSPHATASE 112 U/L (45-117); BUN 10 mg/dl (7-24); CHLORIDE 98 mmol/L (98-107); POTASSIUM 4.1 mmol/L (3.5-5.1); SGOT/AST 66 IU/L (3-35); SGPT/ALT 85 U/L (12-78); SODIUM 135 mmol/L (136-145); TOTAL PROTEIN 8.3 gm/dL (6.4-8.2)
[2017-01-01 17:08] LABS: CREATININE, RANDOM URINE 101.3 mg/dL (Not Estab.); CREATININE, RANDOM URINE 96.6 mg/dL (Not Estab.)
== END | disposition home or self-care (01) ==
LOC: CT 12-25 11:00 → LAB 10:19 → CT 11:00
PROVIDERS: Urology
DX: D49.7 Neoplasm of unspecified behavior of endocrine glands and other parts of nervous system (principal); K76.0 Fatty (change of) liver, not elsewhere classified; Z90.49 Acquired absence of other specified parts of digestive tract; Z90.710 Acquired absence of both cervix and uterus

== ENCOUNTER → 2017-01-21 | Outpatient (CLI) | payer OTHER | END | disposition home or self-care (01) | LOC: US 15:49 | DX: K76.0 Fatty (change of) liver, not elsewhere classified (principal); E27.9 Disorder of adrenal gland, unspecified ==

== ENCOUNTER → 2017-01-28 | Emergency (ER) | payer OTHER ==
[~2017-01-28] VITALS: Ht 167.6 cm; Wt 136.1 kg
[2017-01-28 18:15] VITALS: BP 133/69
[2017-01-28 18:45] LABS: BASO # 0.1 10*3/uL (0.0-0.1); BASO % 0.6 % (0.0-1.0); EOS # 0.5 10*3/uL (0.0-0.4); EOS % 4.3 % (1.0-4.0); HEMATOCRIT 38.4 % (37.0-47.0); HEMOGLOBIN 12.4 g/dl (12.0-16.0); LYMPH # 3.5 10*3/uL (1.3-4.4); LYMPH % 27.6 % (27.0-41.0); MEAN CELL VOLUME 82.4 fl (81.0-99.0); MEAN CORPUSCULAR HGB 26.6 pg (27.0-31.0); MEAN CORPUSCULAR HGB CONC 32.3 g/dl (33.0-37.0); MEAN PLATELET VOLUME 10.6 fl (9.6-12.3); MONO # 0.5 10*3/uL (0.1-1.0); MONO % 4.2 % (3.0-9.0); NEUT # 7.9 10*3/uL (2.3-7.9); NEUT % 62.7 % (47.0-73.0); PLATELET COUNT AUTOMATED 280 10*3/uL (130-400); RED BLOOD COUNT 4.66 10*6/uL (4.10-5.10); RED CELL DISTRI WIDTH 13.8 % (0-14.5); WHITE BLOOD COUNT 12.6 10*3/uL (4.8-10.8)
[2017-01-28 18:49] VITALS: BP 100/58
[2017-01-28 18:55] LABS: ACT PARTIAL THROMBO TIME 24.7 SECONDS (20.8-31.5); INTERNATIONAL NORM RATIO 0.9 (2.0-3.5)
[2017-01-28 19:03] LABS: ALBUMIN 3.1 gm/dl (3.1-4.5); ALKALINE PHOSPHATASE 104 U/L (45-117); BUN 10 mg/dl (7-24); CHLORIDE 102 mmol/L (98-107); CREATININE 0.69 mg/dL (0.55-1.02); POTASSIUM 4.5 mmol/L (3.5-5.1); SGOT/AST 50 IU/L (3-35); SGPT/ALT 76 U/L (12-78); SODIUM 136 mmol/L (136-145); TOTAL PROTEIN 7.9 gm/dL (6.4-8.2)
[2017-01-28 19:08] LABS: TROPONIN I < 0.015 ng/ml (<0.045)
[2017-01-28 19:09] VITALS: BP 120/51
--- NOTE | 2017-01-28 19:11 | NUR ---
PATIENT RATES PAIN 8/10
--- NOTE | 2017-01-28 19:51 | NUR ---
PAIN RATED 5/10 PAIN MEDICATION MOSTLY EFFECTIVE. PATIENT INFORMED OF ADMISSION SHE AND HER PARTNER WERE GOING TO HAVE TO DISCUSS BECAUSE SHE HAS AN APPOINTMENT ABOUT THE [facility] ON KIDNEY TOMORROW.
--- NOTE | 2017-01-28 20:06 | NUR ---
The patient, JESSICA GARCIA, 46, [birth year], [id number], [id number], presented to the Emergency Department at 1806. The patient's Chief Complaint was CHEST PAIN. The patient subsequently left "Against Medical Advice" at 2005. Treatment completed included LABS, RADIOLOGY, EKG, CARDIAC MONITORING, IV, MEDICATION, REQUEST FOR ADMISSION . Possible complications and consequences of not following medical advice were clearly explained to the patient by Dr. RANJEET HOROWITZ , and CA TATE RN. Assessment of the patient's competence, for making the decision to refuse completion of previously requested exam and treatment, includes alert and oriented. Attempts WERE made to get spouse involved in persuading the patient to accept, RANJEET Hensley PA-C, the physician's recommendations. Discussion included NEED FOR FURTHER EVALUATION AND MONITORING . The patient's response was CAN NOT MISS HER APPOINTMENT WITH HER KIDNEY DOCTOR . Family/friends who witnessed the discussion includes SPOUSE . Signatures WERE requested. The patient DID sign the chart; this was witnessed by CA TATE RN. The patient's reason for departing, prior to completion of treatment was "refuses to be admitted". The patient's disposition is dc against medical advice, to the care of spouse. Arrangements have been made for the ED staff to "Call Back" the patient the following day, to inquire about the patient's medical status and encourage JESSICA GARCIA, to seek medical attention, if this has not been completed. CA TATE
== END ==
LOC: ED 18:05 → EDHOLD 19:51 → ED 20:14
PROVIDERS: Emergency Medicine
DX: R07.9 Chest pain, unspecified (principal); Z87.891 Personal history of nicotine dependence; Z98.51 Tubal ligation status; Z90.49 Acquired absence of other specified parts of digestive tract; Z90.710 Acquired absence of both cervix and uterus; Z79.899 Other long term (current) drug therapy; Z79.4 Long term (current) use of insulin; Z79.82 Long term (current) use of aspirin; Z91.041 Radiographic dye allergy status; Z88.1 Allergy status to other antibiotic agents; Z91.040 Latex allergy status; Z88.5 Allergy status to narcotic agent

== ENCOUNTER 2017-05-12 12:56 | Emergency (ER) | payer OTHER ==
[~2017-05-12] VITALS: Ht 154.9 cm; Wt 112.9 kg
[2017-05-12 12:57] VITALS: BP 129/67
[2017-05-12] MEDS ORDERED: FLONASE ALLERG9.9 ML NAS (13:30)
[2017-05-12] MEDS ORDERED: CORTISPORIN SUS10 ML OT (13:30)
== END 2017-05-12 13:39 | disposition home or self-care (01) ==
LOC: ED 12:56
DX: H60.501 Unspecified acute noninfective otitis externa, right ear (principal); R03.0 Elevated blood-pressure reading, without diagnosis of hypertension; K21.9 Gastro-esophageal reflux disease without esophagitis; G43.909 Migraine, unspecified, not intractable, without status migrainosus; J44.1 Chronic obstructive pulmonary disease with (acute) exacerbation; G89.29 Other chronic pain; E11.40 Type 2 diabetes mellitus with diabetic neuropathy, unspecified; E66.01 Morbid (severe) obesity due to excess calories; J45.909 Unspecified asthma, uncomplicated; Z90.710 Acquired absence of both cervix and uterus; Z68.42 Body mass index [BMI] 45.0-49.9, adult; Z91.040 Latex allergy status; Z88.1 Allergy status to other antibiotic agents

== ENCOUNTER 2017-06-30 18:42 | Emergency (ER) | payer OTHER ==
[~2017-06-30] VITALS: Ht 154.9 cm; Wt 117.9 kg
[~2017-06-30 18:42] MED LIST changes: +CORTISPORIN SUS10 ML OT; +FLONASE ALLERG9.9 ML NAS
[2017-06-30] MEDS ORDERED: KEFLEX500 M1 PO (18:48)
[2017-06-30] MEDS ORDERED: SEPTDS PO (18:48)
[2017-06-30 18:51] VITALS: BP 152/75
== END 2017-06-30 18:59 | disposition home or self-care (01) ==
LOC: ED 18:42
DX: L03.211 Cellulitis of face (principal); R03.0 Elevated blood-pressure reading, without diagnosis of hypertension; G89.29 Other chronic pain; J44.9 Chronic obstructive pulmonary disease, unspecified; K21.9 Gastro-esophageal reflux disease without esophagitis; E11.9 Type 2 diabetes mellitus without complications; G43.909 Migraine, unspecified, not intractable, without status migrainosus; G25.81 Restless legs syndrome; E66.01 Morbid (severe) obesity due to excess calories; Z87.11 Personal history of peptic ulcer disease; Z87.01 Personal history of pneumonia (recurrent); Z87.891 Personal history of nicotine dependence; Z98.51 Tubal ligation status; Z90.49 Acquired absence of other specified parts of digestive tract; Z79.4 Long term (current) use of insulin; Z79.82 Long term (current) use of aspirin; Z79.899 Other long term (current) drug therapy; Z91.041 Radiographic dye allergy status; Z88.1 Allergy status to other antibiotic agents; Z91.040 Latex allergy status; Z88.5 Allergy status to narcotic agent

== ENCOUNTER → 2017-07-16 | Outpatient (CLI) | payer OTHER ==
[~2017-07-16] MED LIST changes: +CYCLOBENZAPRINE5 M3 PO; +SEPTDS PO; +TRULICITY1.5 MG/0.5 SC
== END | disposition home or self-care (01) ==
LOC: ORTHO 02:18
DX: M17.12 Unilateral primary osteoarthritis, left knee (principal)

== ENCOUNTER 2017-09-05 19:18 | Emergency (ER) | payer OTHER ==
[~2017-09-05] VITALS: Ht 154.9 cm; Wt 113.4 kg
[~2017-09-05 19:18] MED LIST changes: -CYCLOBENZAPRINE5 M3 PO
[2017-09-05 19:19] VITALS: BP 169/86
[2017-09-05] MEDS ORDERED: MEDROL DOSEPAK4 MG PO (21:55)
[2017-09-05] MEDS ORDERED: CYCLOBENZAPRINE5 M3 PO (21:55)
[2017-09-18] MEDS ORDERED: ZOFRAN4 MG PO (07:51)
[2017-09-18] MEDS ORDERED: NORCO 5-325 TA1 EACH PO (07:51)
== END 2017-09-05 22:00 | disposition home or self-care (01) ==
LOC: ED 19:18
DX: S39.012A Strain of muscle, fascia and tendon of lower back, initial encounter (principal); M48.061 Spinal stenosis, lumbar region without neurogenic claudication; Z87.891 Personal history of nicotine dependence; Z90.710 Acquired absence of both cervix and uterus; Z90.49 Acquired absence of other specified parts of digestive tract; Z98.51 Tubal ligation status; Z79.899 Other long term (current) drug therapy; Z79.82 Long term (current) use of aspirin; Z91.041 Radiographic dye allergy status; Z88.1 Allergy status to other antibiotic agents; Z91.040 Latex allergy status; Z88.6 Allergy status to analgesic agent; X58.XXXA Exposure to other specified factors, initial encounter; Y93.89 Activity, other specified; Y92.89 Other specified places as the place of occurrence of the external cause; Y99.9 Unspecified external cause status

== ENCOUNTER → 2017-09-11 | Outpatient (CLI) | payer OTHER ==
[~2017-09-11] MED LIST changes: +CYCLOBENZAPRINE5 M3 PO; +NORCO 5-325 TA1 EACH PO
--- NOTE | ~2017-09-11 | EKG ---
[place], [place] ELECTROCARDIOGRAM REPORT NAME: JESSICA GARCIA UNIT #: [id number] ROOM: DOCTOR: JOSE RAUL DRAFT REPORT BIRTHDATE: [birth year] [facility] Test Date: 2017-09-11 Test Time: 12:00:17 Pat Name: JESSICA GARCIA Department: Room: Gender: F Senior Economist: : 1970 Requested By: TOMI BORREGO Order Number: [id number] Reading MD: Corwin Martinez MD Measurements Intervals [place] Rate: 100 P: 47 ID: 135 QRS: 44 QRSD: 89 T: 33 QT: 336 QTc: 434 Interpretive Statements Sinus tachycardia Baseline wander in lead(s) V2 Electronically Signed On 09-11-2017 20:37:20 PDT by Corwin Martinez MD CM:EKGRPT:ELECTROCARDIOGRAM REPORT 99 36 TOMI MORALES DRAFT REPORT TOMI BORREGO DO
[2017-09-11 12:29] LABS: BILIRUBIN NEGATIVE (NEGATIVE); BLOOD NEGATIVE (NEGATIVE); CLARITY CLOUDY (CLEAR); COLOR YELLOW (YELLOW); GLUCOSE 2+ (NEGATIVE); KETONE NEGATIVE (NEGATIVE); LEUKO ESTERASE NEGATIVE (NEGATIVE); NITRITE NEGATIVE (NEGATIVE); UROBILINOGEN 0.2 E.U./dl (0.2-1.0)
[2017-09-11 12:45] LABS: BACTERIA 4+; EPITHELIAL CELLS 40-45
[2017-09-11 12:47] LABS: BASO # 0.1 10*3/uL (0.0-0.1); BASO % 0.7 % (0.0-1.0); EOS # 0.4 10*3/uL (0.0-0.4); EOS % 2.9 % (1.0-4.0); HEMATOCRIT 41.7 % (37.0-47.0); LYMPH # 2.9 10*3/uL (1.3-4.4); LYMPH % 22.4 % (27.0-41.0); MEAN CELL VOLUME 82.2 fl (81.0-99.0); MEAN CORPUSCULAR HGB 25.6 pg (27.0-31.0); MEAN CORPUSCULAR HGB CONC 31.2 g/dl (33.0-37.0); MEAN PLATELET VOLUME 10.4 fl (9.6-12.3); MONO # 0.6 10*3/uL (0.1-1.0); MONO % 4.5 % (3.0-9.0); NEUT # 8.9 10*3/uL (2.3-7.9); NEUT % 68.7 % (47.0-73.0); PLATELET COUNT AUTOMATED 312 10*3/uL (130-400); RED BLOOD COUNT 5.07 10*6/uL (4.10-5.10); RED CELL DISTRI WIDTH 15.3 % (0-14.5)
== END | disposition home or self-care (01) ==
LOC: LAB 09:43
PROVIDERS: Orthopaedic Surgery
DX: S83.249A Other tear of medial meniscus, current injury, unspecified knee, initial encounter (principal); I11.0 Hypertensive heart disease with heart failure; I50.9 Heart failure, unspecified; F03.90 Unspecified dementia, unspecified severity, without behavioral disturbance, psychotic disturbance, mood disturbance, and anxiety; J44.9 Chronic obstructive pulmonary disease, unspecified; Z87.891 Personal history of nicotine dependence; X58.XXXA Exposure to other specified factors, initial encounter; Y93.89 Activity, other specified; Y92.89 Other specified places as the place of occurrence of the external cause; Y99.8 Other external cause status

== ENCOUNTER → 2017-09-18 | Day surgery (SDC) | payer OTHER ==
[2017-09-18] VITALS (9 sets, daily range): BP systolic 107–138; BP diastolic 47–87
[~2017-09-18] VITALS: Ht 154.9 cm; Wt 113.9 kg
== END | disposition home or self-care (01) ==
LOC: SDC 09-11 10:15
DX: S83.242A Other tear of medial meniscus, current injury, left knee, initial encounter (principal); S83.282A Other tear of lateral meniscus, current injury, left knee, initial encounter; M94.262 Chondromalacia, left knee; I50.9 Heart failure, unspecified; E78.00 Pure hypercholesterolemia, unspecified; E11.42 Type 2 diabetes mellitus with diabetic polyneuropathy; K21.9 Gastro-esophageal reflux disease without esophagitis; J44.9 Chronic obstructive pulmonary disease, unspecified; D64.9 Anemia, unspecified; G47.30 Sleep apnea, unspecified; G89.29 Other chronic pain; G43.909 Migraine, unspecified, not intractable, without status migrainosus; M17.12 Unilateral primary osteoarthritis, left knee; E66.9 Obesity, unspecified; F31.9 Bipolar disorder, unspecified; Z68.42 Body mass index [BMI] 45.0-49.9, adult; Z99.89 Dependence on other enabling machines and devices; Z90.5 Acquired absence of kidney; Z90.710 Acquired absence of both cervix and uterus; Z90.49 Acquired absence of other specified parts of digestive tract; Z90.721 Acquired absence of ovaries, unilateral; Z79.4 Long term (current) use of insulin; Z79.899 Other long term (current) drug therapy; Z88.5 Allergy status to narcotic agent; Z88.6 Allergy status to analgesic agent; Z88.1 Allergy status to other antibiotic agents; Z91.040 Latex allergy status; Z80.9 Family history of malignant neoplasm, unspecified; Z83.3 Family history of diabetes mellitus; X58.XXXA Exposure to other specified factors, initial encounter; Y93.89 Activity, other specified; Y92.89 Other specified places as the place of occurrence of the external cause; Y99.8 Other external cause status

== ENCOUNTER → 2017-10-22 | Outpatient (CLI) | payer OTHER ==
[~2017-10-22] MED LIST changes: +NEURONTIN800 MG PO
== END | disposition home or self-care (01) ==
LOC: ORTHO 01:55
DX: M17.11 Unilateral primary osteoarthritis, right knee (principal); M21.161 Varus deformity, not elsewhere classified, right knee

== ENCOUNTER 2017-11-07 17:27 | Emergency (ER) | payer OTHER ==
[~2017-11-07] VITALS: Ht 154.9 cm; Wt 113.4 kg
[~2017-11-07 17:27] MED LIST changes: -NEURONTIN800 MG PO
[2017-11-07 17:28] VITALS: BP 150/80
[2017-12-16] MEDS ORDERED: NEURONTIN800 MG PO (15:13)
[2017-12-16] MEDS ORDERED: BREO ELLIPTA 11 EACH INH (15:16)
== END 2017-11-07 20:08 | disposition home or self-care (01) ==
LOC: ED 17:27
DX: S40.011A Contusion of right shoulder, initial encounter (principal); M54.2 Cervicalgia; Z91.041 Radiographic dye allergy status; Z88.1 Allergy status to other antibiotic agents; Z88.6 Allergy status to analgesic agent; Z91.040 Latex allergy status; Z79.84 Long term (current) use of oral hypoglycemic drugs; Z79.899 Other long term (current) drug therapy; Z79.4 Long term (current) use of insulin; Z79.82 Long term (current) use of aspirin; Z90.710 Acquired absence of both cervix and uterus; Z98.890 Other specified postprocedural states; Z87.891 Personal history of nicotine dependence; W10.9XXA Fall (on) (from) unspecified stairs and steps, initial encounter; Y93.89 Activity, other specified; Y92.89 Other specified places as the place of occurrence of the external cause; Y99.8 Other external cause status

== ENCOUNTER 2018-09-19 18:10 | Emergency (ER) | payer OTHER ==
[~2018-09-19] VITALS: Ht 154.9 cm; Wt 111.1 kg
[~2018-09-19 18:10] MED LIST changes: +NEURONTIN800 MG PO
[2018-09-19 18:11] VITALS: BP 145/64
== END 2018-09-19 20:00 | disposition home or self-care (01) ==
LOC: ED 18:10
DX: S80.02XA Contusion of left knee, initial encounter (principal); E11.9 Type 2 diabetes mellitus without complications; E78.5 Hyperlipidemia, unspecified; G43.909 Migraine, unspecified, not intractable, without status migrainosus; J44.9 Chronic obstructive pulmonary disease, unspecified; I11.0 Hypertensive heart disease with heart failure; I50.9 Heart failure, unspecified; Z91.041 Radiographic dye allergy status; Z88.1 Allergy status to other antibiotic agents; Z88.8 Allergy status to other drugs, medicaments and biological substances; Z91.040 Latex allergy status; Z79.899 Other long term (current) drug therapy; Z79.4 Long term (current) use of insulin; Z90.710 Acquired absence of both cervix and uterus; Z90.49 Acquired absence of other specified parts of digestive tract; Z87.891 Personal history of nicotine dependence; Z79.82 Long term (current) use of aspirin; V09.9XXA Pedestrian injured in unspecified transport accident, initial encounter; Y93.89 Activity, other specified; Y92.89 Other specified places as the place of occurrence of the external cause; Y99.8 Other external cause status

== ENCOUNTER → 2019-01-06 | Outpatient (CLI) | payer OTHER | END | disposition home or self-care (01) | LOC: ORTHO 01:28 | DX: M17.0 Bilateral primary osteoarthritis of knee (principal); M25.462 Effusion, left knee; G89.29 Other chronic pain ==

== ENCOUNTER 2019-03-07 09:46 | Emergency (ER) | payer OTHER ==
[~2019-03-07] VITALS: Ht 154.9 cm; Wt 106.6 kg
[2019-03-07 10:13] LABS: BASO # 0.1 10*3/uL (0.0-0.1); BASO % 0.6 % (0.0-1.0); EOS # 0.3 10*3/uL (0.0-0.4); EOS % 2.9 % (1.0-4.0); HEMATOCRIT 41.2 % (37.0-47.0); HEMOGLOBIN 13.2 g/dl (12.0-16.0); LYMPH # 2.9 10*3/uL (1.3-4.4); MEAN CELL VOLUME 83.4 fl (81.0-99.0); MEAN CORPUSCULAR HGB 26.7 pg (27.0-31.0); MEAN PLATELET VOLUME 10.6 fl (9.6-12.3); MONO # 0.5 10*3/uL (0.1-1.0); MONO % 4.3 % (3.0-9.0); NEUT # 7.7 10*3/uL (2.3-7.9); NEUT % 66.5 % (47.0-73.0); PLATELET COUNT AUTOMATED 303 10*3/uL (130-400); RED BLOOD COUNT 4.94 10*6/uL (4.10-5.10); RED CELL DISTRI WIDTH 13.7 % (0-14.5); WHITE BLOOD COUNT 11.5 10*3/uL (4.8-10.8)
[2019-03-07 10:31] LABS: ACT PARTIAL THROMBO TIME 26.6 SECONDS (20.0-32.1); ALBUMIN 3.5 gm/dl (3.1-4.5); ALKALINE PHOSPHATASE 105 U/L (45-117); BUN 14 mg/dl (7-24); CHLORIDE 106 mmol/L (98-107); CREATININE 1.05 mg/dL (0.55-1.02); INTERNATIONAL NORM RATIO 0.9 (2.0-3.5); POTASSIUM 3.9 mmol/L (3.5-5.1); SGOT/AST 44 IU/L (3-35); SGPT/ALT 67 U/L (12-78); SODIUM 138 mmol/L (136-145); TOTAL PROTEIN 8.1 gm/dL (6.4-8.2)
[2019-03-07 10:32] LABS: TROPONIN I < 0.015 ng/ml (<0.045)
[2019-03-07 12:29] VITALS: BP 117/79
[2019-03-07] MEDS ORDERED: VIBRAMYCIN100 MG PO (12:34)
[2019-03-07] MEDS ORDERED: PREDNISONE20 M1 PO (12:34)
== END 2019-03-07 12:37 | disposition home or self-care (01) ==
LOC: ED 09:46
PROVIDERS: Physician Assistant
DX: J06.9 Acute upper respiratory infection, unspecified (principal); J45.909 Unspecified asthma, uncomplicated; E11.9 Type 2 diabetes mellitus without complications; I10 Essential (primary) hypertension; G43.909 Migraine, unspecified, not intractable, without status migrainosus; E78.00 Pure hypercholesterolemia, unspecified; E66.9 Obesity, unspecified; Z91.041 Radiographic dye allergy status; Z88.1 Allergy status to other antibiotic agents; Z91.040 Latex allergy status; Z88.8 Allergy status to other drugs, medicaments and biological substances; Z79.899 Other long term (current) drug therapy; Z79.82 Long term (current) use of aspirin; Z79.4 Long term (current) use of insulin

== ENCOUNTER → 2019-05-08 | Outpatient (CLI) | payer OTHER ==
[~2019-05-08] MED LIST changes: +PREDNISONE20 M1 PO; +VIBRAMYCIN100 MG PO
== END | disposition home or self-care (01) ==
LOC: RAD 09:06
DX: R06.89 Other abnormalities of breathing (principal); R05 Cough; R06.02 Shortness of breath

== ENCOUNTER → 2019-11-29 | Outpatient (CLI) | payer OTHER | END | disposition home or self-care (01) | LOC: RAD 07:57 | PROVIDERS: ATTEND Internal Medicine Critical Care Medicine | DX: Z01.811 Encounter for preprocedural respiratory examination (principal); I10 Essential (primary) hypertension; E11.9 Type 2 diabetes mellitus without complications; J45.909 Unspecified asthma, uncomplicated; Z87.891 Personal history of nicotine dependence ==

== ENCOUNTER → 2019-12-27 | Outpatient (CLI) | payer OTHER ==
[~2019-12-27] MED LIST changes: +OZEMPIC0.25 MG/01 SQ
== END | disposition home or self-care (01) ==
LOC: CARD 11:28
PROVIDERS: ATTEND Nurse Practitioner Family
DX: E11.65 Type 2 diabetes mellitus with hyperglycemia (principal); I10 Essential (primary) hypertension; E66.9 Obesity, unspecified; M25.562 Pain in left knee; G89.29 Other chronic pain

== ENCOUNTER → 2020-01-06 | Outpatient (CLI) | payer OTHER | END | disposition home or self-care (01) | LOC: RAD 08:22 | PROVIDERS: ATTEND Nurse Practitioner Family | DX: D72.829 Elevated white blood cell count, unspecified (principal) ==

== ENCOUNTER 2020-02-15 15:49 | Emergency (ER) | payer OTHER ==
[~2020-02-15] VITALS: Ht 154.9 cm; Wt 108.9 kg
[~2020-02-15 15:49] MED LIST changes: -OZEMPIC0.25 MG/01 SQ
[2020-02-15] MEDS ORDERED: OZEMPIC0.25 MG/01 SQ (16:03)
[2020-02-15] MEDS ORDERED: LANTUS SOL100 UNIT/1 SC (16:04)
[2020-02-15 16:22] LABS: BASO # 0.1 10*3/uL (0.0-0.1); BASO % 0.5 % (0.0-1.0); EOS # 0.4 10*3/uL (0.0-0.4); EOS % 3.5 % (1.0-4.0); HEMATOCRIT 39.6 % (37.0-47.0); LYMPH # 2.8 10*3/uL (1.3-4.4); LYMPH % 22.9 % (27.0-41.0); MEAN CELL VOLUME 83.2 fl (81.0-99.0); MEAN CORPUSCULAR HGB 26.3 pg (27.0-31.0); MEAN CORPUSCULAR HGB CONC 31.6 g/dl (33.0-37.0); MEAN PLATELET VOLUME 10.3 fl (9.6-12.3); MONO # 0.6 10*3/uL (0.1-1.0); MONO % 4.6 % (3.0-9.0); NEUT # 8.4 10*3/uL (2.3-7.9); NEUT % 67.7 % (47.0-73.0); PLATELET COUNT AUTOMATED 295 10*3/uL (130-400); RED BLOOD COUNT 4.76 10*6/uL (4.10-5.10); RED CELL DISTRI WIDTH 13.7 % (0-14.5); WHITE BLOOD COUNT 12.4 10*3/uL (4.8-10.8)
[2020-02-15 16:41] LABS: INTERNATIONAL NORM RATIO 0.9 (2.0-3.5)
[2020-02-15 16:42] LABS: ALKALINE PHOSPHATASE 128 U/L (45-117); BUN 11 mg/dl (7-24); CHLORIDE 103 mmol/L (98-107); CREATININE 0.84 mg/dL (0.55-1.02); POTASSIUM 4.4 mmol/L (3.5-5.1); SGOT/AST 53 IU/L (3-35); SGPT/ALT 68 U/L (12-78); SODIUM 136 mmol/L (136-145); TOTAL PROTEIN 7.8 gm/dL (6.4-8.2)
[2020-02-15 16:43] LABS: TROPONIN I < 0.015 ng/ml (<0.045)
[2020-02-15 18:23] VITALS: BP 121/73
[2020-02-15] MEDS ORDERED: PREDNISONE50 MG PO (19:02)
[2020-02-15] MEDS ORDERED: ZOFRAN4 MG PO (19:02)
== END 2020-02-15 19:12 | disposition home or self-care (01) ==
LOC: ED 15:49
PROVIDERS: Emergency Medicine
DX: J45.901 Unspecified asthma with (acute) exacerbation (principal); E11.9 Type 2 diabetes mellitus without complications; F32.9 Major depressive disorder, single episode, unspecified; J45.909 Unspecified asthma, uncomplicated; F41.9 Anxiety disorder, unspecified; G43.909 Migraine, unspecified, not intractable, without status migrainosus; E78.00 Pure hypercholesterolemia, unspecified; E66.9 Obesity, unspecified; M19.90 Unspecified osteoarthritis, unspecified site; K21.9 Gastro-esophageal reflux disease without esophagitis; I11.0 Hypertensive heart disease with heart failure; I50.9 Heart failure, unspecified; Z91.041 Radiographic dye allergy status; Z88.1 Allergy status to other antibiotic agents; Z88.8 Allergy status to other drugs, medicaments and biological substances; Z91.040 Latex allergy status; Z79.899 Other long term (current) drug therapy; Z79.4 Long term (current) use of insulin; Z90.710 Acquired absence of both cervix and uterus; Z90.89 Acquired absence of other organs; Z98.51 Tubal ligation status; Z87.891 Personal history of nicotine dependence; Z20.828 Contact with and (suspected) exposure to other viral communicable diseases

== ENCOUNTER → 2020-07-24 | Outpatient (CLI) | payer OTHER ==
[~2020-07-24] MED LIST changes: +OZEMPIC0.25 MG/01 SQ
[2020-07-24 07:34] LABS: BASO % 0.4 % (0.0-1.0); EOS # 0.5 10*3/uL (0.0-0.4); EOS % 4.8 % (1.0-4.0); HEMATOCRIT 40.8 % (37.0-47.0); LYMPH # 2.6 10*3/uL (1.3-4.4); LYMPH % 26.8 % (27.0-41.0); MEAN CORPUSCULAR HGB 25.9 pg (27.0-31.0); MEAN CORPUSCULAR HGB CONC 32.4 g/dl (33.0-37.0); MEAN PLATELET VOLUME 10.7 fl (9.6-12.3); MONO # 0.5 10*3/uL (0.1-1.0); MONO % 4.9 % (3.0-9.0); NEUT # 6.1 10*3/uL (2.3-7.9); NEUT % 62.6 % (47.0-73.0); PLATELET COUNT AUTOMATED 258 10*3/uL (130-400); RED CELL DISTRI WIDTH 14.2 % (0-14.5); WHITE BLOOD COUNT 9.7 10*3/uL (4.8-10.8)
[2020-07-24 07:50] LABS: URIC ACID 4.6 mg/dL (2.6-6.0)
[2020-07-25 05:06] LABS: RHEUMATOID ARTHRITIS FACTOR <10.0 IU/mL (0.0-13.9)
== END | disposition home or self-care (01) ==
LOC: LAB 07:21
PROVIDERS: ATTEND Nurse Practitioner Family
DX: I10 Essential (primary) hypertension (principal); E11.65 Type 2 diabetes mellitus with hyperglycemia; D72.829 Elevated white blood cell count, unspecified; M25.50 Pain in unspecified joint; R70.0 Elevated erythrocyte sedimentation rate; R79.82 Elevated C-reactive protein (CRP)

== ENCOUNTER → 2020-11-13 | Outpatient (CLI) | payer OTHER | END | disposition home or self-care (01) | LOC: RAD 10:09 | PROVIDERS: ATTEND Nurse Practitioner Family | DX: R05 Cough (principal); R53.83 Other fatigue; R06.2 Wheezing; E66.1 Drug-induced obesity; E11.65 Type 2 diabetes mellitus with hyperglycemia; Z68.43 Body mass index [BMI] 50.0-59.9, adult ==

== ENCOUNTER → 2020-12-27 | Outpatient (CLI) | payer OTHER ==
[2020-12-27 07:52] LABS: BASO % 0.4 % (0.0-1.0); EOS # 0.2 10*3/uL (0.0-0.4); EOS % 3.1 % (1.0-4.0); HEMATOCRIT 43.8 % (37.0-47.0); LYMPH # 1.9 10*3/uL (1.3-4.4); LYMPH % 25.2 % (27.0-41.0); MEAN CORPUSCULAR HGB 26.8 pg (27.0-31.0); MEAN CORPUSCULAR HGB CONC 32.6 g/dl (33.0-37.0); MEAN PLATELET VOLUME 10.6 fl (9.6-12.3); MONO # 0.6 10*3/uL (0.1-1.0); MONO % 7.8 % (3.0-9.0); NEUT # 4.6 10*3/uL (2.3-7.9); NEUT % 62.7 % (47.0-73.0); PLATELET COUNT AUTOMATED 234 10*3/uL (130-400); RED BLOOD COUNT 5.34 10*6/uL (4.10-5.10); RED CELL DISTRI WIDTH 13.9 % (0-14.5); WHITE BLOOD COUNT 7.4 10*3/uL (4.8-10.8)
[2020-12-27 08:10] LABS: CHLORIDE 102 mmol/L (98-107); SODIUM 133 mmol/L (136-145)
[2020-12-27 08:29] LABS: ALKALINE PHOSPHATASE 114 U/L (45-117); BUN 8 mg/dl (7-24); CHOLESTEROL 209 mg/dL (<200); CREATININE 0.66 mg/dL (0.55-1.02); LDL CHOLESTEROL 134 mg/dL (9-159); SGOT/AST 49 IU/L (3-35); SGPT/ALT 64 U/L (12-78); TOTAL PROTEIN 7.4 gm/dL (6.4-8.2); TRIGLYCERIDES 225 mg/dl (<150)
== END | disposition home or self-care (01) ==
LOC: LAB 07:03
PROVIDERS: ATTEND Nurse Practitioner Family
DX: E11.65 Type 2 diabetes mellitus with hyperglycemia (principal); E66.9 Obesity, unspecified; I10 Essential (primary) hypertension

== ENCOUNTER → 2021-01-22 | Outpatient (CLI) | payer OTHER | END | disposition home or self-care (01) | LOC: RAD 12:19 | PROVIDERS: ATTEND Family Medicine | DX: J45.41 Moderate persistent asthma with (acute) exacerbation (principal) ==

== ENCOUNTER → 2021-02-28 | Outpatient (CLI) | payer OTHER | END | disposition home or self-care (01) | LOC: RAD 09:10 | PROVIDERS: ATTEND Nurse Practitioner Family | DX: U07.1 COVID-19 (principal); R06.02 Shortness of breath; R05.9 Cough, unspecified; R06.2 Wheezing ==

== ENCOUNTER 2021-03-21 18:15 | Emergency (ER) | payer OTHER ==
[~2021-03-21] VITALS: Wt 108.4 kg
[2021-03-21 18:20] VITALS: BP 126/83
== END 2021-03-21 21:35 | disposition home or self-care (01) ==
LOC: ED 18:15
DX: S00.93XA Contusion of unspecified part of head, initial encounter (principal); E11.9 Type 2 diabetes mellitus without complications; I10 Essential (primary) hypertension; J45.909 Unspecified asthma, uncomplicated; G43.909 Migraine, unspecified, not intractable, without status migrainosus; E78.00 Pure hypercholesterolemia, unspecified; M19.90 Unspecified osteoarthritis, unspecified site; Z91.041 Radiographic dye allergy status; Z88.1 Allergy status to other antibiotic agents; Z91.040 Latex allergy status; Z88.8 Allergy status to other drugs, medicaments and biological substances; Z79.899 Other long term (current) drug therapy; Z79.82 Long term (current) use of aspirin; Z90.710 Acquired absence of both cervix and uterus; Z90.89 Acquired absence of other organs; Z90.49 Acquired absence of other specified parts of digestive tract; Z98.51 Tubal ligation status; Z87.891 Personal history of nicotine dependence; Y08.89XA Assault by other specified means, initial encounter; Y93.89 Activity, other specified; Y92.89 Other specified places as the place of occurrence of the external cause; Y99.8 Other external cause status

== ENCOUNTER → 2021-03-26 | Outpatient (CLI) | payer OTHER | END | disposition home or self-care (01) | LOC: MRI 11:00 | PROVIDERS: ATTEND Nurse Practitioner Family | DX: I67.89 Other cerebrovascular disease (principal); S09.90XD Unspecified injury of head, subsequent encounter; H57.04 Mydriasis; X58.XXXD Exposure to other specified factors, subsequent encounter ==

== ENCOUNTER 2021-07-10 13:20 | Inpatient (IN) | payer OTHER ==
[~2021-07-10] VITALS: Ht 154.9 cm; Wt 100.7 kg
[2021-07-10 13:37] VITALS: BP 143/84
[2021-07-10 13:39] LABS: BASO # 0.1 10*3/uL (0.0-0.1); BASO % 0.6 % (0.0-1.0); EOS # 0.4 10*3/uL (0.0-0.4); EOS % 3.2 % (1.0-4.0); HEMATOCRIT 44.6 % (37.0-47.0); LYMPH # 3.6 10*3/uL (1.3-4.4); LYMPH % 29.6 % (27.0-41.0); MEAN CELL VOLUME 82.1 fl (81.0-99.0); MEAN CORPUSCULAR HGB 26.9 pg (27.0-31.0); MEAN CORPUSCULAR HGB CONC 32.7 g/dl (33.0-37.0); MEAN PLATELET VOLUME 10.4 fl (9.6-12.3); MONO # 0.5 10*3/uL (0.1-1.0); MONO % 4.1 % (3.0-9.0); NEUT # 7.5 10*3/uL (2.3-7.9); NEUT % 61.7 % (47.0-73.0); PLATELET COUNT AUTOMATED 316 10*3/uL (130-400); RED BLOOD COUNT 5.43 10*6/uL (4.10-5.10); RED CELL DISTRI WIDTH 12.9 % (0-14.5); WHITE BLOOD COUNT 12.1 10*3/uL (4.8-10.8)
[2021-07-10 13:52] LABS: ACT PARTIAL THROMBO TIME 25.6 SECONDS (20.0-32.1)
[2021-07-10 14:00] LABS: ALKALINE PHOSPHATASE 122 U/L (45-117); BUN 7 mg/dl (7-24); CHLORIDE 102 mmol/L (98-107); CREATININE 0.68 mg/dL (0.55-1.02); POTASSIUM 3.9 mmol/L (3.5-5.1); SGOT/AST 40 IU/L (3-35); SGPT/ALT 60 U/L (12-78); SODIUM 133 mmol/L (136-145); TOTAL PROTEIN 7.7 gm/dL (6.4-8.2)
[2021-07-10 14:33] VITALS: BP 127/79
[2021-07-10 15:20] VITALS: BP 128/72
[2021-07-10 16:09] VITALS: BP 127/69
[2021-07-10 16:27] VITALS: BP 148/78
[2021-07-10] MEDS ORDERED: LANTUS SOL100 UNIT/1 SC (16:47)
[2021-07-10] MEDS ORDERED: TOPROL XL25 MG PO (16:49)
[2021-07-10] MEDS ORDERED: CYMBALTA30 MG PO (16:50)
[2021-07-10 20:00] VITALS: BP 146/78
[2021-07-11] VITALS: BP 113/72
[2021-07-11 06:31] LABS: BASO # 0.1 10*3/uL (0.0-0.1); BASO % 0.8 % (0.0-1.0); EOS # 0.5 10*3/uL (0.0-0.4); EOS % 4.5 % (1.0-4.0); HEMATOCRIT 41.9 % (37.0-47.0); LYMPH # 3.9 10*3/uL (1.3-4.4); LYMPH % 37.5 % (27.0-41.0); MEAN CELL VOLUME 82.6 fl (81.0-99.0); MEAN CORPUSCULAR HGB CONC 32.7 g/dl (33.0-37.0); MEAN PLATELET VOLUME 10.9 fl (9.6-12.3); MONO # 0.5 10*3/uL (0.1-1.0); MONO % 5.2 % (3.0-9.0); NEUT # 5.3 10*3/uL (2.3-7.9); NEUT % 51.2 % (47.0-73.0); PLATELET COUNT AUTOMATED 307 10*3/uL (130-400); RED BLOOD COUNT 5.07 10*6/uL (4.10-5.10); RED CELL DISTRI WIDTH 13.1 % (0-14.5); WHITE BLOOD COUNT 10.3 10*3/uL (4.8-10.8)
[2021-07-11 06:34] LABS: BUN 11 mg/dl (7-24); CHLORIDE 103 mmol/L (98-107); CHOLESTEROL 224 mg/dL (<200); CREATININE 0.66 mg/dL (0.55-1.02); POTASSIUM 4.3 mmol/L (3.5-5.1); SGOT/AST 35 IU/L (3-35); SGPT/ALT 53 U/L (12-78); SODIUM 136 mmol/L (136-145); TRIGLYCERIDES 366 mg/dl (<150)
[2021-07-11 06:41] LABS: ALKALINE PHOSPHATASE 108 U/L (45-117); FREE T4 0.98 ng/dl (0.76-1.46); LDL CHOLESTEROL 118 mg/dL (9-159)
[2021-07-11 07:00] LABS: VITAMIN D, 25-HYDROXY 19.4 ng/mL (30-100)
[2021-07-11 08:00] VITALS: BP 127/76
[2021-07-11 12:00] VITALS: BP 119/58
[2021-07-11 12:30] VITALS: BP 102/56
[2021-07-11 16:00] VITALS: BP 108/62
[2021-07-11 20:00] VITALS: BP 107/68
[2021-07-12] VITALS: BP 123/60
[2021-07-12 06:17] LABS: BASO # 0.1 10*3/uL (0.0-0.1); BASO % 0.4 % (0.0-1.0); EOS % 0.1 % (1.0-4.0); HEMATOCRIT 45.8 % (37.0-47.0); LYMPH # 1.3 10*3/uL (1.3-4.4); MEAN CORPUSCULAR HGB 27.2 pg (27.0-31.0); MEAN CORPUSCULAR HGB CONC 32.8 g/dl (33.0-37.0); MONO # 0.2 10*3/uL (0.1-1.0); MONO % 1.4 % (3.0-9.0); NEUT # 11.2 10*3/uL (2.3-7.9); NEUT % 86.9 % (47.0-73.0); PLATELET COUNT AUTOMATED 327 10*3/uL (130-400); RED BLOOD COUNT 5.52 10*6/uL (4.10-5.10); RED CELL DISTRI WIDTH 12.7 % (0-14.5); WHITE BLOOD COUNT 12.8 10*3/uL (4.8-10.8)
[2021-07-12 06:21] LABS: BUN 14 mg/dl (7-24); CHLORIDE 103 mmol/L (98-107); CREATININE 0.77 mg/dL (0.55-1.02); POTASSIUM 4.7 mmol/L (3.5-5.1); SODIUM 132 mmol/L (136-145)
[2021-07-12 08:13] VITALS: BP 127/73
[2021-07-12] MEDS ORDERED: NYAMYC15 GM T (11:08)
[2021-07-12 12:00] VITALS: BP 113/69
[2021-07-12 16:00] VITALS: BP 125/71
== END 2021-07-12 17:57 | disposition home or self-care (01) | DRG 756 ==
LOC: ED 13:20 → 5E 14:46 → EDHOLD 14:46 → 5E 15:53
PROVIDERS: Emergency Medicine; Family Medicine; Internal Medicine; ADMIT Internal Medicine; ATTEND Internal Medicine
PROC: 4A02XM4 Measurement of Cardiac Total Activity, External Approach (ICD-10-PCS; principal; 2021-07-11)
PROC: 3E073KZ Introduction of Other Diagnostic Substance into Coronary Artery, Percutaneous Approach (ICD-10-PCS; 2021-07-11)
DX: F41.9 Anxiety disorder, unspecified (principal); R65.10 Systemic inflammatory response syndrome (SIRS) of non-infectious origin without acute organ dysfunction; E87.1 Hypo-osmolality and hyponatremia; E44.0 Moderate protein-calorie malnutrition; E66.2 Morbid (severe) obesity with alveolar hypoventilation; R74.01 Elevation of levels of liver transaminase levels; E11.65 Type 2 diabetes mellitus with hyperglycemia; E78.5 Hyperlipidemia, unspecified; K21.9 Gastro-esophageal reflux disease without esophagitis; G25.81 Restless legs syndrome; F31.9 Bipolar disorder, unspecified; J44.9 Chronic obstructive pulmonary disease, unspecified; K76.0 Fatty (change of) liver, not elsewhere classified; I10 Essential (primary) hypertension; Z88.6 Allergy status to analgesic agent; Z88.1 Allergy status to other antibiotic agents; Z91.041 Radiographic dye allergy status; Z79.4 Long term (current) use of insulin; Z91.040 Latex allergy status; Z79.899 Other long term (current) drug therapy; Z90.49 Acquired absence of other specified parts of digestive tract; Z90.710 Acquired absence of both cervix and uterus; Z87.891 Personal history of nicotine dependence; Z83.3 Family history of diabetes mellitus; Z82.5 Family history of asthma and other chronic lower respiratory diseases; Z68.41 Body mass index [BMI] 40.0-44.9, adult

== ENCOUNTER 2021-08-22 08:47 | Emergency (ER) | payer OTHER ==
[~2021-08-22] VITALS: Ht 154.9 cm; Wt 99.8 kg
[~2021-08-22 08:47] MED LIST changes: +CYMBALTA30 MG PO; +NYAMYC15 GM T; +TOPROL XL25 MG PO
[2021-08-22 08:56] VITALS: BP 138/76
[2021-08-22] MEDS ORDERED: PERCOCET 5-3251 EACH PO (14:17)
== END 2021-08-22 14:20 | disposition home or self-care (01) ==
LOC: ED 08:47
DX: S49.81XA Other specified injuries of right shoulder and upper arm, initial encounter (principal); Z87.891 Personal history of nicotine dependence; Z90.49 Acquired absence of other specified parts of digestive tract; Z98.51 Tubal ligation status; Z79.899 Other long term (current) drug therapy; Z79.82 Long term (current) use of aspirin; Z91.041 Radiographic dye allergy status; Z88.1 Allergy status to other antibiotic agents; Z91.040 Latex allergy status; W17.89XA Other fall from one level to another, initial encounter; Y93.89 Activity, other specified; Y92.89 Other specified places as the place of occurrence of the external cause; Y99.9 Unspecified external cause status

== ENCOUNTER 2021-10-28 01:36 | Emergency (ER) | payer OTHER ==
[~2021-10-28] VITALS: Ht 154.9 cm; Wt 101.6 kg
[~2021-10-28 01:36] MED LIST changes: +PERCOCET 5-3251 EACH PO
[2021-10-28 02:23] VITALS: BP 123/67
[2021-10-28] MEDS ORDERED: PREDNISONE20 M1 PO (05:33)
== END 2021-10-28 06:58 | disposition home or self-care (01) ==
LOC: ED 01:36
DX: G56.01 Carpal tunnel syndrome, right upper limb (principal); Z91.041 Radiographic dye allergy status; Z88.1 Allergy status to other antibiotic agents; Z88.8 Allergy status to other drugs, medicaments and biological substances; Z91.040 Latex allergy status; Z79.899 Other long term (current) drug therapy; Z79.82 Long term (current) use of aspirin; Z98.51 Tubal ligation status; Z90.49 Acquired absence of other specified parts of digestive tract; Z90.89 Acquired absence of other organs; Z98.890 Other specified postprocedural states; F17.200 Nicotine dependence, unspecified, uncomplicated

== ENCOUNTER 2021-11-02 22:12 | Emergency (ER) | payer OTHER ==
[~2021-11-02] VITALS: Ht 154.9 cm; Wt 98.6 kg
[2021-11-02 22:44] LABS: BASO # 0.1 10*3/uL (0.0-0.1); BASO % 0.7 % (0.0-1.0); EOS # 0.4 10*3/uL (0.0-0.4); EOS % 3.6 % (1.0-4.0); HEMATOCRIT 42.5 % (37.0-47.0); LYMPH # 3.2 10*3/uL (1.3-4.4); LYMPH % 28.1 % (27.0-41.0); MEAN CORPUSCULAR HGB 27.7 pg (27.0-31.0); MEAN CORPUSCULAR HGB CONC 32.9 g/dl (33.0-37.0); MEAN PLATELET VOLUME 10.7 fl (9.6-12.3); MONO # 0.5 10*3/uL (0.1-1.0); MONO % 4.8 % (3.0-9.0); NEUT % 62.3 % (47.0-73.0); PLATELET COUNT AUTOMATED 270 10*3/uL (130-400); RED BLOOD COUNT 5.06 10*6/uL (4.10-5.10); RED CELL DISTRI WIDTH 13.1 % (0-14.5); WHITE BLOOD COUNT 11.3 10*3/uL (4.8-10.8)
[2021-11-02 22:55] LABS: ALKALINE PHOSPHATASE 100 U/L (45-117); BUN 10 mg/dl (7-24); CHLORIDE 101 mmol/L (98-107); CREATININE 0.92 mg/dL (0.55-1.02); POTASSIUM 3.9 mmol/L (3.5-5.1); SGOT/AST 18 IU/L (3-35); SGPT/ALT 40 U/L (12-78); SODIUM 132 mmol/L (136-145); TOTAL PROTEIN 7.2 gm/dL (6.4-8.2)
[2021-11-02 23:14] LABS: ACT PARTIAL THROMBO TIME 25.9 SECONDS (20.0-32.1)
[2021-11-02 23:24] VITALS: BP 130/81
== END 2021-11-03 02:35 | disposition home or self-care (01) ==
LOC: ED 22:12
PROVIDERS: Internal Medicine
DX: R07.89 Other chest pain (principal); E11.65 Type 2 diabetes mellitus with hyperglycemia; E44.1 Mild protein-calorie malnutrition; R42 Dizziness and giddiness; Z79.82 Long term (current) use of aspirin; Z91.041 Radiographic dye allergy status; Z88.1 Allergy status to other antibiotic agents; Z91.040 Latex allergy status; Z79.899 Other long term (current) drug therapy; Z79.4 Long term (current) use of insulin; Z98.51 Tubal ligation status; Z90.710 Acquired absence of both cervix and uterus; Z90.49 Acquired absence of other specified parts of digestive tract; Z87.891 Personal history of nicotine dependence; E66.9 Obesity, unspecified; Z68.30 Body mass index [BMI] 30.0-30.9, adult

== ENCOUNTER 2022-02-17 16:24 | Emergency (ER) | payer OTHER ==
[~2022-02-17] VITALS: Wt 108.9 kg
[2022-02-17 16:36] VITALS: BP 142/67
[2022-02-17] MEDS ORDERED: PREDNISONE20 M1 PO (20:16)
== END 2022-02-17 20:19 | disposition home or self-care (01) ==
LOC: ED 16:24
DX: S60.222A Contusion of left hand, initial encounter (principal); Z91.041 Radiographic dye allergy status; Z88.1 Allergy status to other antibiotic agents; Z91.040 Latex allergy status; Z88.6 Allergy status to analgesic agent; Z79.899 Other long term (current) drug therapy; Z79.82 Long term (current) use of aspirin; Z90.710 Acquired absence of both cervix and uterus; Z90.49 Acquired absence of other specified parts of digestive tract; Z90.89 Acquired absence of other organs; Z87.891 Personal history of nicotine dependence; W22.8XXA Striking against or struck by other objects, initial encounter; Y93.89 Activity, other specified; Y92.89 Other specified places as the place of occurrence of the external cause; Y99.8 Other external cause status

== ENCOUNTER → 2022-03-09 | Outpatient (CLI) | payer OTHER | END | disposition home or self-care (01) | LOC: LAB 08:15 | PROVIDERS: ATTEND Nurse Practitioner Family | DX: E11.65 Type 2 diabetes mellitus with hyperglycemia (principal) ==

== ENCOUNTER 2022-03-14 10:54 | Emergency (ER) | payer OTHER ==
[~2022-03-14] VITALS: Wt 99.8 kg
[2022-03-14 11:33] LABS: BASO # 0.1 10*3/uL (0.0-0.1); BASO % 0.4 % (0.0-1.0); EOS # 0.4 10*3/uL (0.0-0.4); EOS % 3.4 % (1.0-4.0); HEMATOCRIT 44.6 % (37.0-47.0); LYMPH # 2.9 10*3/uL (1.3-4.4); LYMPH % 24.8 % (27.0-41.0); MEAN CELL VOLUME 81.5 fl (81.0-99.0); MEAN CORPUSCULAR HGB 26.7 pg (27.0-31.0); MEAN CORPUSCULAR HGB CONC 32.7 g/dl (33.0-37.0); MEAN PLATELET VOLUME 10.3 fl (9.6-12.3); MONO # 0.5 10*3/uL (0.1-1.0); NEUT # 7.8 10*3/uL (2.3-7.9); PLATELET COUNT AUTOMATED 309 10*3/uL (130-400); RED BLOOD COUNT 5.47 10*6/uL (4.10-5.10); RED CELL DISTRI WIDTH 12.8 % (0-14.5); WHITE BLOOD COUNT 11.6 10*3/uL (4.8-10.8)
[2022-03-14 11:45] LABS: ACT PARTIAL THROMBO TIME 26.2 SECONDS (20.0-32.1)
[2022-03-14 11:49] LABS: ALKALINE PHOSPHATASE 93 U/L (46-116); BUN 13 mg/dl (9-23); CHLORIDE 98 mmol/L (98-107); POTASSIUM 4.2 mmol/L (3.4-5.1); SGPT/ALT 19 U/L (10-49); TOTAL PROTEIN 7.5 gm/dL (6.0-8.0)
[2022-03-14 12:27] VITALS: BP 113/81
== END 2022-03-14 13:27 | disposition home or self-care (01) ==
LOC: ED 10:54
PROVIDERS: Emergency Medicine
DX: R07.89 Other chest pain (principal); M79.622 Pain in left upper arm; Z87.891 Personal history of nicotine dependence; Z98.51 Tubal ligation status; Z90.89 Acquired absence of other organs; Z90.49 Acquired absence of other specified parts of digestive tract; Z90.710 Acquired absence of both cervix and uterus; Z79.899 Other long term (current) drug therapy; Z91.041 Radiographic dye allergy status; Z88.1 Allergy status to other antibiotic agents; Z91.040 Latex allergy status; Z88.6 Allergy status to analgesic agent

== ENCOUNTER → 2022-05-20 | Outpatient (CLI) | payer OTHER | END | disposition home or self-care (01) | LOC: LAB 07:53 | PROVIDERS: ATTEND Nurse Practitioner Family | DX: E11.65 Type 2 diabetes mellitus with hyperglycemia (principal); J02.9 Acute pharyngitis, unspecified ==

== ENCOUNTER → 2022-05-23 | Day surgery (SDC) | payer OTHER ==
[~2022-05-23] VITALS: Ht 151.1 cm; Wt 103.4 kg
[2022-05-23 06:59] VITALS: BP 133/85
[2022-05-23 07:53] LABS: BUN 13 mg/dl (9-23); CHLORIDE 101 mmol/L (98-107); POTASSIUM 4.4 mmol/L (3.4-5.1)
[2022-05-23 08:13] VITALS: BP 116/70
[2022-05-23 08:28] VITALS: BP 124/82
[2022-05-23 08:39] VITALS: BP 124/80
== END | disposition home or self-care (01) ==
LOC: SDC 05-20 10:15
PROVIDERS: ATTEND Orthopaedic Surgery
DX: G56.03 Carpal tunnel syndrome, bilateral upper limbs (principal); M65.312 Trigger thumb, left thumb; E11.9 Type 2 diabetes mellitus without complications; F32.A Depression, unspecified; I10 Essential (primary) hypertension; F41.9 Anxiety disorder, unspecified; G43.909 Migraine, unspecified, not intractable, without status migrainosus; E78.00 Pure hypercholesterolemia, unspecified; G25.81 Restless legs syndrome; M17.0 Bilateral primary osteoarthritis of knee; J44.9 Chronic obstructive pulmonary disease, unspecified; K21.9 Gastro-esophageal reflux disease without esophagitis; Z90.710 Acquired absence of both cervix and uterus; Z79.899 Other long term (current) drug therapy

== ENCOUNTER → 2022-07-26 | Outpatient (CLI) | payer OTHER ==
[2022-07-26 08:17] LABS: BASO # 0.1 10*3/uL (0.0-0.1); BASO % 0.5 % (0.0-1.0); EOS # 0.4 10*3/uL (0.0-0.4); EOS % 3.6 % (1.0-4.0); HEMATOCRIT 45.8 % (37.0-47.0); LYMPH # 3.4 10*3/uL (1.3-4.4); LYMPH % 28.6 % (27.0-41.0); MEAN CELL VOLUME 80.9 fl (81.0-99.0); MEAN CORPUSCULAR HGB 26.5 pg (27.0-31.0); MEAN CORPUSCULAR HGB CONC 32.8 g/dl (33.0-37.0); MEAN PLATELET VOLUME 10.7 fl (9.6-12.3); MONO # 0.5 10*3/uL (0.1-1.0); MONO % 4.6 % (3.0-9.0); NEUT # 7.3 10*3/uL (2.3-7.9); NEUT % 62.3 % (47.0-73.0); PLATELET COUNT AUTOMATED 302 10*3/uL (130-400); RED BLOOD COUNT 5.66 10*6/uL (4.10-5.10); RED CELL DISTRI WIDTH 13.3 % (0-14.5); WHITE BLOOD COUNT 11.8 10*3/uL (4.8-10.8)
[2022-07-26 08:48] LABS: ALKALINE PHOSPHATASE 97 U/L (46-116); BUN 8 mg/dl (9-23); CHLORIDE 98 mmol/L (98-107); CHOLESTEROL 226 mg/dL (<200); LDL CHOLESTEROL 140 mg/dL (9-159); POTASSIUM 4.2 mmol/L (3.4-5.1); SGPT/ALT 39 U/L (10-49); TOTAL PROTEIN 7.5 gm/dL (6.0-8.0); TRIGLYCERIDES 244 mg/dl (<150)
[2022-07-26 08:51] LABS: VITAMIN D, 25-HYDROXY 22.3 ng/mL (30-100)
== END | disposition home or self-care (01) ==
LOC: LAB 07:44
PROVIDERS: ATTEND Orthopaedic Surgery
DX: I10 Essential (primary) hypertension (principal); E11.65 Type 2 diabetes mellitus with hyperglycemia; E55.9 Vitamin D deficiency, unspecified; E78.2 Mixed hyperlipidemia; E53.8 Deficiency of other specified B group vitamins; E11.42 Type 2 diabetes mellitus with diabetic polyneuropathy

== ENCOUNTER → 2022-09-25 | Outpatient (CLI) | payer OTHER ==
[2022-09-25 10:36] LABS: BASO # 0.1 10*3/uL (0.0-0.1); BASO % 0.7 % (0.0-1.0); EOS # 0.4 10*3/uL (0.0-0.4); EOS % 3.6 % (1.0-4.0); HEMATOCRIT 44.1 % (37.0-47.0); LYMPH # 2.5 10*3/uL (1.3-4.4); LYMPH % 23.6 % (27.0-41.0); MEAN CELL VOLUME 83.4 fl (81.0-99.0); MEAN CORPUSCULAR HGB 26.7 pg (27.0-31.0); MEAN PLATELET VOLUME 10.5 fl (9.6-12.3); MONO # 0.4 10*3/uL (0.1-1.0); MONO % 3.8 % (3.0-9.0); NEUT # 7.3 10*3/uL (2.3-7.9); NEUT % 67.7 % (47.0-73.0); PLATELET COUNT AUTOMATED 290 10*3/uL (130-400); RED BLOOD COUNT 5.29 10*6/uL (4.10-5.10); RED CELL DISTRI WIDTH 13.4 % (0-14.5); WHITE BLOOD COUNT 10.7 10*3/uL (4.8-10.8)
== END | disposition home or self-care (01) ==
LOC: LAB 10:05
PROVIDERS: ATTEND Nurse Practitioner Family
DX: E11.65 Type 2 diabetes mellitus with hyperglycemia (principal); F32.9 Major depressive disorder, single episode, unspecified; E55.9 Vitamin D deficiency, unspecified; I10 Essential (primary) hypertension; D72.829 Elevated white blood cell count, unspecified; Z91.51 Personal history of suicidal behavior

== ENCOUNTER 2022-10-25 13:11 | Emergency (ER) | payer OTHER ==
[~2022-10-25] VITALS: Ht 154.9 cm; Wt 99.8 kg
[2022-10-25 13:23] VITALS: BP 134/86
[2022-10-25 14:28] LABS: BASO # 0.1 10*3/uL (0.0-0.1); BASO % 0.5 % (0.0-1.0); EOS # 0.4 10*3/uL (0.0-0.4); HEMATOCRIT 44.1 % (37.0-47.0); MEAN CORPUSCULAR HGB 26.7 pg (27.0-31.0); MEAN CORPUSCULAR HGB CONC 33.3 g/dl (33.0-37.0); MEAN PLATELET VOLUME 10.4 fl (9.6-12.3); MONO # 0.7 10*3/uL (0.1-1.0); MONO % 5.8 % (3.0-9.0); NEUT # 7.4 10*3/uL (2.3-7.9); NEUT % 64.1 % (47.0-73.0); PLATELET COUNT AUTOMATED 311 10*3/uL (130-400); RED BLOOD COUNT 5.51 10*6/uL (4.10-5.10); RED CELL DISTRI WIDTH 13.5 % (0-14.5); WHITE BLOOD COUNT 11.6 10*3/uL (4.8-10.8)
[2022-10-25 14:29] LABS: BILIRUBIN Negative (Negative); BLOOD Negative (Negative); CLARITY Clear (Clear); COLOR Yellow (Yellow); GLUCOSE 3+ (Negative); KETONE Negative (Negative); LEUKO ESTERASE Negative (Negative); NITRITE Negative (Negative); PH 5.5 (4.5-8.0); SPECIFIC GRAVITY 1.025 (1.001-1.030); UROBILINOGEN 0.2 E.U./dl (0.0-1.0)
[2022-10-25 14:35] LABS: URINE AMPHETAMINES Negative (1000ng/ml); URINE BARBITURATES Negative (200ng/ml); URINE BENZODIAZEPINES Negative (200ng/ml); URINE CANNABINOIDS (THC) Negative (50ng/ml); URINE COCAINE Negative (300ng/ml); URINE METHADONE Negative (300ng/ml); URINE OPIATES Negative (300ng/ml); URINE PHENCYCLIDINE Negative (25ng/ml)
[2022-10-25 14:51] LABS: ALKALINE PHOSPHATASE 118 U/L (46-116); BUN 10 mg/dl (9-23); CHLORIDE 98 mmol/L (98-107); CPK 20 U/L (34-171); POTASSIUM 3.8 mmol/L (3.4-5.1); SGPT/ALT 26 U/L (10-49); TOTAL PROTEIN 7.7 gm/dL (6.0-8.0)
[2022-10-25 14:52] LABS: ETHYL ALCOHOL < 3.0 mg/dl (<3)
[2022-10-25 14:54] LABS: BACTERIA 1+; YEAST 1+
== END 2022-10-25 16:34 | disposition home or self-care (01) ==
LOC: ED 13:11
PROVIDERS: Internal Medicine
DX: F43.23 Adjustment disorder with mixed anxiety and depressed mood (principal); E11.9 Type 2 diabetes mellitus without complications; J45.909 Unspecified asthma, uncomplicated; I10 Essential (primary) hypertension; G43.909 Migraine, unspecified, not intractable, without status migrainosus; E78.00 Pure hypercholesterolemia, unspecified; M19.90 Unspecified osteoarthritis, unspecified site; Z91.041 Radiographic dye allergy status; Z88.1 Allergy status to other antibiotic agents; Z88.6 Allergy status to analgesic agent; Z91.040 Latex allergy status; Z90.710 Acquired absence of both cervix and uterus; Z90.49 Acquired absence of other specified parts of digestive tract; Z90.89 Acquired absence of other organs; Z98.51 Tubal ligation status; F17.200 Nicotine dependence, unspecified, uncomplicated

== ENCOUNTER 2022-11-21 02:33 | Emergency (ER) | payer OTHER ==
[~2022-11-21] VITALS: Ht 154.9 cm; Wt 108.5 kg
[2022-11-21 02:55] LABS: BASO # 0.1 10*3/uL (0.0-0.1); BASO % 0.5 % (0.0-1.0); EOS # 0.5 10*3/uL (0.0-0.4); EOS % 3.4 % (1.0-4.0); HEMATOCRIT 37.7 % (37.0-47.0); LYMPH # 3.9 10*3/uL (1.3-4.4); LYMPH % 27.4 % (27.0-41.0); MEAN CELL VOLUME 81.6 fl (81.0-99.0); MEAN CORPUSCULAR HGB 27.3 pg (27.0-31.0); MEAN CORPUSCULAR HGB CONC 33.4 g/dl (33.0-37.0); MEAN PLATELET VOLUME 10.2 fl (9.6-12.3); MONO # 0.8 10*3/uL (0.1-1.0); MONO % 5.7 % (3.0-9.0); NEUT # 8.9 10*3/uL (2.3-7.9); PLATELET COUNT AUTOMATED 287 10*3/uL (130-400); RED BLOOD COUNT 4.62 10*6/uL (4.10-5.10); RED CELL DISTRI WIDTH 14.1 % (0-14.5); WHITE BLOOD COUNT 14.3 10*3/uL (4.8-10.8)
[2022-11-21 03:16] LABS: ALKALINE PHOSPHATASE 110 U/L (46-116); BUN 11 mg/dl (9-23); CHLORIDE 103 mmol/L (98-107); LIPASE 36 U/L (12-53); POTASSIUM 4.1 mmol/L (3.4-5.1); SGPT/ALT 27 U/L (10-49); TOTAL PROTEIN 6.7 gm/dL (6.0-8.0)
[2022-11-21 04:26] VITALS: BP 121/79
[2022-11-21 04:52] LABS: BILIRUBIN Negative (Negative); BLOOD Negative (Negative); CLARITY Clear (Clear); COLOR Yellow (Yellow); GLUCOSE 3+ (Negative); KETONE Negative (Negative); LEUKO ESTERASE Negative (Negative); NITRITE Negative (Negative); PH 5.5 (4.5-8.0); SPECIFIC GRAVITY >= 1.030 (1.001-1.030); UROBILINOGEN 0.2 E.U./dl (0.0-1.0)
[2022-11-21 05:07] LABS: BACTERIA 1+; EPITHELIAL CELLS 31-40
[2022-11-21 05:08] LABS: WBC 0-2 wbc/hpf (0-5); YEAST TRACE
== END 2022-11-21 05:24 | disposition home or self-care (01) ==
LOC: ED 02:33
PROVIDERS: Internal Medicine
DX: M94.0 Chondrocostal junction syndrome [Tietze] (principal); Z91.041 Radiographic dye allergy status; Z88.1 Allergy status to other antibiotic agents; Z88.6 Allergy status to analgesic agent; Z91.040 Latex allergy status; Z90.49 Acquired absence of other specified parts of digestive tract; Z90.710 Acquired absence of both cervix and uterus; Z90.89 Acquired absence of other organs; Z98.890 Other specified postprocedural states; Z98.51 Tubal ligation status; Z87.891 Personal history of nicotine dependence

== ENCOUNTER → 2023-05-12 | Outpatient (CLI) | payer OTHER ==
[2023-05-12 09:13] LABS: BASO # 0.1 10*3/uL (0.0-0.1); BASO % 0.7 % (0.0-1.0); EOS # 0.4 10*3/uL (0.0-0.4); EOS % 3.8 % (1.0-4.0); HEMATOCRIT 45.5 % (37.0-47.0); LYMPH # 2.7 10*3/uL (1.3-4.4); MEAN CELL VOLUME 82.9 fl (81.0-99.0); MEAN CORPUSCULAR HGB 26.6 pg (27.0-31.0); MEAN CORPUSCULAR HGB CONC 32.1 g/dl (33.0-37.0); MEAN PLATELET VOLUME 10.5 fl (9.6-12.3); MONO # 0.5 10*3/uL (0.1-1.0); MONO % 4.4 % (3.0-9.0); NEUT # 7.1 10*3/uL (2.3-7.9); NEUT % 65.5 % (47.0-73.0); PLATELET COUNT AUTOMATED 301 10*3/uL (130-400); RED BLOOD COUNT 5.49 10*6/uL (4.10-5.10); RED CELL DISTRI WIDTH 13.5 % (0-14.5); WHITE BLOOD COUNT 10.8 10*3/uL (4.8-10.8)
[2023-05-12 09:29] LABS: URINE CREATININE RANDOM 110.4 mg/dL
[2023-05-12 09:44] LABS: ALKALINE PHOSPHATASE 103 U/L (46-116); BUN 10 mg/dl (9-23); CHLORIDE 100 mmol/L (98-107); CHOLESTEROL 246 mg/dL (<200); LDL CHOLESTEROL 154 mg/dL (9-159); POTASSIUM 4.5 mmol/L (3.4-5.1); SGPT/ALT 28 U/L (5-49); TOTAL PROTEIN 7.8 gm/dL (6.0-8.0); TRIGLYCERIDES 244 mg/dl (<150)
[2023-05-12 10:09] LABS: VITAMIN D, 25-HYDROXY 16.9 ng/mL (30-100)
== END | disposition home or self-care (01) ==
LOC: LAB 08:13
PROVIDERS: ATTEND Nurse Practitioner Family
DX: I10 Essential (primary) hypertension (principal); E11.65 Type 2 diabetes mellitus with hyperglycemia; E55.9 Vitamin D deficiency, unspecified; E53.8 Deficiency of other specified B group vitamins

== ENCOUNTER → 2023-06-02 | Outpatient (CLI) | payer OTHER | END | disposition home or self-care (01) | LOC: MAMMO 02:48 | PROVIDERS: ATTEND Nurse Practitioner Family | DX: Z12.31 Encounter for screening mammogram for malignant neoplasm of breast (principal); N63.20 Unspecified lump in the left breast, unspecified quadrant ==

== ENCOUNTER → 2023-07-17 | Outpatient (CLI) | payer OTHER | END | disposition home or self-care (01) | LOC: LAB 10:40 → RAD 10:40 | PROVIDERS: ATTEND Nurse Practitioner Family | DX: M19.012 Primary osteoarthritis, left shoulder (principal); E11.65 Type 2 diabetes mellitus with hyperglycemia ==

== ENCOUNTER → 2023-11-14 | Outpatient (CLI) | payer OTHER ==
[2023-11-14 07:51] LABS: BASO # 0.1 10*3/uL (0.0-0.1); BASO % 0.6 % (0.0-1.0); EOS # 0.5 10*3/uL (0.0-0.4); EOS % 3.4 % (1.0-4.0); HEMATOCRIT 42.9 % (37.0-47.0); LYMPH # 3.7 10*3/uL (1.3-4.4); LYMPH % 28.4 % (27.0-41.0); MEAN CELL VOLUME 83.1 fl (81.0-99.0); MEAN CORPUSCULAR HGB 27.1 pg (27.0-31.0); MEAN CORPUSCULAR HGB CONC 32.6 g/dl (33.0-37.0); MEAN PLATELET VOLUME 10.6 fl (9.6-12.3); MONO # 0.6 10*3/uL (0.1-1.0); MONO % 4.6 % (3.0-9.0); NEUT # 8.2 10*3/uL (2.3-7.9); NEUT % 62.4 % (47.0-73.0); PLATELET COUNT AUTOMATED 367 10*3/uL (130-400); RED BLOOD COUNT 5.16 10*6/uL (4.10-5.10); RED CELL DISTRI WIDTH 13.4 % (0-14.5); WHITE BLOOD COUNT 13.1 10*3/uL (4.8-10.8)
[2023-11-14 08:31] LABS: ALKALINE PHOSPHATASE 119 U/L (46-116); BUN 13 mg/dl (9-23); CHLORIDE 101 mmol/L (98-107); CHOLESTEROL 163 mg/dL (<200); LDL CHOLESTEROL 75 mg/dL (9-159); SGPT/ALT 18 U/L (5-49); TOTAL PROTEIN 7.4 gm/dL (6.0-8.0); TRIGLYCERIDES 224 mg/dl (<150)
== END | disposition home or self-care (01) ==
LOC: LAB 07:07
PROVIDERS: ATTEND Nurse Practitioner Family
DX: I10 Essential (primary) hypertension (principal); E11.65 Type 2 diabetes mellitus with hyperglycemia; E55.9 Vitamin D deficiency, unspecified; E53.8 Deficiency of other specified B group vitamins

== ENCOUNTER → 2023-11-20 | Outpatient (CLI) | payer OTHER | END | disposition home or self-care (01) | LOC: LAB 07:26 | PROVIDERS: ATTEND Internal Medicine | DX: E11.65 Type 2 diabetes mellitus with hyperglycemia (principal) ==

== ENCOUNTER → 2024-03-01 | Outpatient (CLI) | payer OTHER ==
[2024-03-01 08:55] LABS: BASO # 0.1 10*3/uL (0.0-0.1); BASO % 0.6 % (0.0-1.0); EOS # 0.4 10*3/uL (0.0-0.4); HEMATOCRIT 40.3 % (37.0-47.0); MEAN CELL VOLUME 83.3 fl (81.0-99.0); MEAN CORPUSCULAR HGB 26.7 pg (27.0-31.0); MEAN PLATELET VOLUME 10.2 fl (9.6-12.3); MONO # 0.5 10*3/uL (0.1-1.0); MONO % 4.5 % (3.0-9.0); NEUT # 8.5 10*3/uL (2.3-7.9); NEUT % 72.7 % (47.0-73.0); PLATELET COUNT AUTOMATED 344 10*3/uL (130-400); RED BLOOD COUNT 4.84 10*6/uL (4.10-5.10); RED CELL DISTRI WIDTH 13.2 % (0-14.5); WHITE BLOOD COUNT 11.7 10*3/uL (4.8-10.8)
[2024-03-01 09:26] LABS: ALKALINE PHOSPHATASE 128 U/L (46-116); BUN 11 mg/dl (9-23); CHLORIDE 106 mmol/L (98-107); CHOLESTEROL 145 mg/dL (<200); LDL CHOLESTEROL 68 mg/dL (9-159); POTASSIUM 4.1 mmol/L (3.4-5.1); SGPT/ALT 13 U/L (5-49); TOTAL PROTEIN 7.9 gm/dL (6.0-8.0); TRIGLYCERIDES 203 mg/dl (<150)
== END | disposition home or self-care (01) ==
LOC: LAB 08:19
PROVIDERS: ATTEND Nurse Practitioner Family
DX: I10 Essential (primary) hypertension (principal); E11.65 Type 2 diabetes mellitus with hyperglycemia; E11.42 Type 2 diabetes mellitus with diabetic polyneuropathy; E78.2 Mixed hyperlipidemia

== ENCOUNTER → 2024-12-23 | Outpatient (CLI) | payer OTHER ==
[2024-12-23 16:24] LABS: BASO # 0.0 10*3/uL (0.0-0.1); BASO % 0.4 % (0.0-1.0); EOS # 0.4 10*3/uL (0.0-0.4); EOS % 3.2 % (1.0-4.0); MEAN CELL VOLUME 78.5 fl (81.0-99.0); MEAN CORPUSCULAR HGB 23.7 pg (27.0-31.0); MEAN PLATELET VOLUME 11.1 fl (9.6-12.3); MONO # 0.5 10*3/uL (0.1-1.0); MONO % 4.7 % (3.0-9.0); NEUT # 8.6 10*3/uL (2.3-7.9); NEUT % 76.8 % (47.0-73.0); NUCLEATED RED BLOOD CELL 0.0 % (0.0-0.0); NUCLEATED RED BLOOD CELL 0.0 10*3/uL (0.0-0.0); PLATELET COUNT AUTOMATED 362 10*3/uL (130-400); RED CELL DISTRI WIDTH 15.5 % (0-14.5)
[2024-12-23 16:56] LABS: VITAMIN D, 25-HYDROXY 18.8 ng/mL (30-100)
[2024-12-23 16:58] LABS: BUN 14 mg/dl (9-23); SGPT/ALT 19 U/L (5-49)
== END | disposition home or self-care (01) ==
LOC: LAB 15:01
PROVIDERS: ATTEND Nurse Practitioner Family
DX: I10 Essential (primary) hypertension (principal); E11.65 Type 2 diabetes mellitus with hyperglycemia; G62.9 Polyneuropathy, unspecified; E55.9 Vitamin D deficiency, unspecified; F41.9 Anxiety disorder, unspecified

== ENCOUNTER 2025-02-03 01:04 | Emergency (ER) | payer OTHER ==
[~2025-02-03] VITALS: Ht 154.9 cm; Wt 102.5 kg
[2025-02-03 01:18] VITALS: BP 146/74
[2025-02-03] MEDS ORDERED: Amoxicillin/Clavulanate Pota 875 MG TAB PO ONE (01:30)
[2025-02-03] MEDS ORDERED: AMOX-CLAV 875-1 EACH PO (01:31)
== END 2025-02-03 01:48 | disposition home or self-care (01) ==
LOC: ED 01:04
DX: H66.91 Otitis media, unspecified, right ear (principal); E11.9 Type 2 diabetes mellitus without complications; J45.909 Unspecified asthma, uncomplicated; F32.A Depression, unspecified; I10 Essential (primary) hypertension; F41.9 Anxiety disorder, unspecified; G43.909 Migraine, unspecified, not intractable, without status migrainosus; G47.30 Sleep apnea, unspecified; E78.00 Pure hypercholesterolemia, unspecified; M19.90 Unspecified osteoarthritis, unspecified site; Z87.891 Personal history of nicotine dependence; Z90.49 Acquired absence of other specified parts of digestive tract; Z90.89 Acquired absence of other organs; Z90.710 Acquired absence of both cervix and uterus; Z88.1 Allergy status to other antibiotic agents; Z91.040 Latex allergy status; Z88.8 Allergy status to other drugs, medicaments and biological substances